=== PATIENT | female | born 1955 | race Caucasian/White ===

== ENCOUNTER 2018-05-23 15:30 | Outpatient (CLI) | payer MEDICARE | END 2018-05-23 15:31 | disposition critical access hospital (66) | LOC: EMS 15:30 | PROVIDERS: ATTEND Surgery | DX: R41.82 Altered mental status, unspecified (principal); R11.2 Nausea with vomiting, unspecified; R73.09 Other abnormal glucose | CPT/HCPCS: A0425; A0427 ==

== ENCOUNTER 2018-05-23 16:03 | Inpatient (IN) | payer MEDICARE ==
[2018-05-23] MEDS ORDERED: ELECTROLYTE-A SOLUTION 1,000 ML IV STA (16:13)
[2018-05-23] MEDS ORDERED: ELECTROLYTE-A SOLUTION 1,000 ML IV ONE (16:13)
--- NOTE | 2018-05-23 16:39 | ED Physician Documentation ---
History of Present Illness - Stated complaint Stated Complaint: DKA - Chief complaint Chief Complaint: Neuro - History obtained from History obtained from: Family, EMS - History of Present Illness Timing: Today - Additonal information Additional information: Patient found altered at home. Unknown what happened. She is a diabetic and blood sugar around 500 with EMS. Review of Systems Unable to obtain: [facility] PAST MEDICAL HISTORY - Past Medical History Past Medical History: Yes Endocrine/Autoimmune: Type 2 diabetes - Present Medications Home Medications: Ambulatory Orders Medication Instructions Recorded Confirmed Amoxicillin/Potassium Clav [Amox 1 each PO BID 05/23/18 05/23/18 Tr-K Clv 875-125 mg Tab] Atorvastatin Calcium 40 mg PO DAILY 05/23/18 05/23/18 Insulin 70/30 Human [NovoLIN] 20 unit SUBQ QPM 05/23/18 Levothyroxine [Synthroid] 125 mcg PO QDAC 05/23/18 05/23/18 Lisinopril 5 mg PO DAILY 05/23/18 05/23/18 predniSONE [Prednisone] 20 mg PO DAILY 05/23/18 05/23/18 - Allergies Allergies/Adverse Reactions: Allergies Allergy/AdvReac Type Severity Reaction Status Date / Time Unable to Assess Allergy Verified 05/23/18 17:44 - Living Situation Living Arrangement: reports: At home PD ED PE NORMAL - Vitals Vital signs reviewed: Yes - General General: Other (alert, not oriented to person, place, or time. just repeats "I don't know" over and over.) - HEENT HEENT: Atraumatic, PERRL, EOMI, Moist mucous membranes, Pharynx benign - Neck Neck: Supple, no meningeal sign - Cardiac Cardiac: RRR, Strong equal pulses - Respiratory Respiratory: No respiratory distress, Clear bilaterally - Abdomen Abdomen: Soft, Non tender, Non distended - Back Back: No spinal TTP - Derm Derm: Warm and dry - Extremities Extremities: No edema - Neuro Neuro: Other (alert) Results - Vitals Vitals: Vital Signs - 24 hr 05/23/18 05/23/18 05/23/18 16:05 16:30 18:30 Temperature 36.7 C 38.8 C H Heart Rate 99 88 111 H Respiratory 18 18 24 Rate Blood Pressure 184/89 H 169/78 H 178/105 H O2 Saturation 94 96 100 05/23/18 05/23/18 05/23/18 19:21 19:43 20:42 Temperature Heart Rate 107 H 108 H 109 H Respiratory 19 20 19 Rate Blood Pressure 170/79 H 168/82 H 156/86 H O2 Saturation 93 98 99 05/23/18 05/23/18 05/23/18 20:44 21:07 21:33 Temperature 39.2 C H Heart Rate 107 H 107 H Respiratory 18 21 Rate Blood Pressure 169/72 H 162/68 H O2 Saturation 100 99 Oxygen O2 Source Nasal cannula - EKG (time done) 2003 Rate: Rate (enter#) (111) Rhythm: Sinus tachycardia [place]: Normal Intervals: Normal [place] QRS: Normal Ischemia: Normal ST segments Other comments: Other comments (low voltage) - Labs Labs: Microbiology 05/23/18 20:47 CSF Culture - Preliminary Cerebral Spinal Fluid Laboratory Tests 05/23/18 05/23/18 05/23/18 16:11 16:40 16:40 WBC 10.2 RBC 3.98 L Hgb 12.4 Hct 35.7 L MCV 89.7 MCH 31.0 MCHC 34.6 RDW 14.2 Plt Count 284 MPV 9.7 Neut # (Auto) 8.0 H Lymph # (Auto) 1.6 [place] # (Auto) 0.4 Eos # (Auto) 0.0 Baso # (Auto) 0.1 Absolute Nucleated RBC 0.00 Nucleated RBC % 0.0 VBG pH 7.482 H VBG pCO2 38.9 L VBG pO2 34.0 VBG HCO3 29.1 H VBG Total CO2 30.0 H VBG O2 Saturation 71.0 VBG Base Excess 6.0 H Sodium Potassium Chloride Carbon Dioxide Anion Gap BUN Creatinine Estimated GFR (MDRD) Glucose POC Whole Bld Glucose 529 H* Lactic Acid Calcium Total Bilirubin AST ALT Alkaline Phosphatase Troponin I Total Protein Albumin Globulin Albumin/Globulin Ratio Lipase TSH Free T4 Urine Color Urine Clarity Urine pH Ur Specific [place] Urine Protein Urine Glucose (UA) Urine Ketones Urine Occult Blood Urine Nitrite Urine Bilirubin Urine Urobilinogen Ur Leukocyte Esterase Urine RBC Urine WBC Ur Squamous Epith Cells Urine Bacteria Ur Microscopic Review Urine Culture Comments CSF Color CSF Clarity Xanthrochromic CSF WBC CSF RBC CSF Cell Count Tube # CSF Glucose CSF Total Protein Salicylates Urine Opiates Screen Ur Oxycodone Screen Urine Methadone Screen Ur Propoxyphene Screen Acetaminophen Ur Barbiturates Screen Ur Tricyclics Screen Ur Phencyclidine Scrn Ur Amphetamine Screen U Methamphetamines Scrn U Benzodiazepines Scrn Urine Cocaine Screen U Cannabinoids Screen Ethyl Alcohol Serum Ketones 05/23/18 05/23/18 05/23/18 17:45 17:45 17:45 WBC RBC Hgb Hct MCV MCH MCHC RDW Plt Count MPV Neut # (Auto) Lymph # (Auto) [place] # (Auto) Eos # (Auto) Baso # (Auto) Absolute Nucleated RBC Nucleated RBC % VBG pH VBG pCO2 VBG pO2 VBG HCO3 VBG Total CO2 VBG O2 Saturation VBG Base Excess Sodium 133 L Potassium 4.4 Chloride 93 L Carbon Dioxide 24 Anion Gap 16.0 H BUN 23 H Creatinine 1.1 H Estimated GFR (MDRD) 50 L Glucose 456 H POC Whole Bld Glucose Lactic Acid Calcium 9.1 Total Bilirubin 0.4 AST 27 ALT 31 Alkaline Phosphatase 118 Troponin I < 0.04 Total Protein 7.7 Albumin 3.7 Globulin 4.0 Albumin/Globulin Ratio 0.9 L Lipase 25 TSH 0.23 L Free T4 Urine Color Urine Clarity Urine pH Ur Specific [place] Urine Protein Urine Glucose (UA) Urine Ketones Urine Occult Blood Urine Nitrite Urine Bilirubin Urine Urobilinogen Ur Leukocyte Esterase Urine RBC Urine WBC Ur Squamous Epith Cells Urine Bacteria Ur Microscopic Review Urine Culture Comments CSF Color CSF Clarity Xanthrochromic CSF WBC CSF RBC CSF Cell Count Tube # CSF Glucose CSF Total Protein Salicylates Urine Opiates Screen Ur Oxycodone Screen Urine Methadone Screen Ur Propoxyphene Screen Acetaminophen Ur Barbiturates Screen Ur Tricyclics Screen Ur Phencyclidine Scrn Ur Amphetamine Screen U Methamphetamines Scrn U Benzodiazepines Scrn Urine Cocaine Screen U Cannabinoids Screen Ethyl Alcohol Serum Ketones NEGATIVE 05/23/18 05/23/18 05/23/18 17:45 18:00 18:25 WBC RBC Hgb Hct MCV MCH MCHC RDW Plt Count MPV Neut # (Auto) Lymph # (Auto) [place] # (Auto) Eos # (Auto) Baso # (Auto) Absolute Nucleated RBC Nucleated RBC % VBG pH VBG pCO2 VBG pO2 VBG HCO3 VBG Total CO2 VBG O2 Saturation VBG Base Excess Sodium Potassium Chloride Carbon Dioxide Anion Gap BUN Creatinine Estimated GFR (MDRD) Glucose POC Whole Bld Glucose 430 H Lactic Acid Calcium Total Bilirubin AST ALT Alkaline Phosphatase Troponin I Total Protein Albumin Globulin Albumin/Globulin Ratio Lipase TSH Free T4 1.24 Urine Color Urine Clarity Urine pH Ur Specific [place] Urine Protein Urine Glucose (UA) Urine Ketones Urine Occult Blood Urine Nitrite Urine Bilirubin Urine Urobilinogen Ur Leukocyte Esterase Urine RBC Urine WBC Ur Squamous Epith Cells Urine Bacteria Ur Microscopic Review Urine Culture Comments CSF Color CSF Clarity Xanthrochromic CSF WBC CSF RBC CSF Cell Count Tube # CSF Glucose CSF Total Protein Salicylates < 6.0 Urine Opiates Screen Ur Oxycodone Screen Urine Methadone Screen Ur Propoxyphene Screen Acetaminophen < 10 L Ur Barbiturates Screen Ur Tricyclics Screen Ur Phencyclidine Scrn Ur Amphetamine Screen U Methamphetamines Scrn U Benzodiazepines Scrn Urine Cocaine Screen U Cannabinoids Screen Ethyl Alcohol < 5.0 Serum Ketones 05/23/18 05/23/18 05/23/18 19:25 19:53 20:47 WBC RBC Hgb Hct MCV MCH MCHC RDW Plt Count MPV Neut # (Auto) Lymph # (Auto) [place] # (Auto) Eos # (Auto) Baso # (Auto) Absolute Nucleated RBC Nucleated RBC % VBG pH VBG pCO2 VBG pO2 VBG HCO3 VBG Total CO2 VBG O2 Saturation VBG Base Excess Sodium Potassium Chloride Carbon Dioxide Anion Gap BUN Creatinine Estimated GFR (MDRD) Glucose POC Whole Bld Glucose Lactic Acid 2.3 H Calcium Total Bilirubin AST ALT Alkaline Phosphatase Troponin I Total Protein Albumin Globulin Albumin/Globulin Ratio Lipase TSH Free T4 Urine Color YELLOW Urine Clarity CLEAR Urine pH 6.0 Ur Specific [place] 1.015 Urine Protein 100 H Urine Glucose (UA) >=1000 H Urine Ketones 40 H Urine Occult Blood SMALL H Urine Nitrite NEGATIVE Urine Bilirubin NEGATIVE Urine Urobilinogen 0.2 (NORMAL) Ur Leukocyte Esterase NEGATIVE Urine RBC 0-5 Urine WBC 0-3 Ur Squamous Epith Cells NONE SEEN Urine Bacteria None Seen Ur Microscopic Review INDICATED Urine Culture Comments NOT INDICATED CSF Color COLORLESS CSF Clarity CLEAR Xanthrochromic ABSENT CSF WBC 1 CSF RBC 893 H CSF Cell Count Tube # CSF TUBE# 3 CSF Glucose 228 H CSF Total Protein 64 H Salicylates Urine Opiates Screen NEGATIVE Ur Oxycodone Screen NEGATIVE Urine Methadone Screen NEGATIVE Ur Propoxyphene Screen NEGATIVE Acetaminophen Ur Barbiturates Screen NEGATIVE Ur Tricyclics Screen NEGATIVE Ur Phencyclidine Scrn NEGATIVE Ur Amphetamine Screen NEGATIVE U Methamphetamines Scrn NEGATIVE U Benzodiazepines Scrn NEGATIVE Urine Cocaine Screen NEGATIVE U Cannabinoids Screen NEGATIVE Ethyl Alcohol Serum Ketones - Rads (name of study) cxr Radiology: Prelim report reviewed, EMP read contemporaneously, See rad report (No infiltrate identified. Elevated right hemidiaphragm with mild overlying atelectasis. Cardiomegaly. ) head CT Radiology: Prelim report reviewed, EMP read contemporaneously, See rad report (No acute intracranial abnormality) Procedures - Lumbar Puncture Position: Laying left side Location: L4-L5, Midline approach Anesthesia: Local lidocaine CSF: Bloody but clearing Other: Sterile prep and drape, Patient tolerated well, No complications PD MEDICAL DECISION MAKING - ED course Complexity details: reviewed results, re-evaluated patient, considered differential, d/w family ED course: Patient is a 63-year-old female who presents to the emergency department with acute altered mental status. No history is available. Unknown what medication she takes. Family is not present. No acute findings on head CT, laboratory testing other than elevated blood glucose. She did spike a fever while in the emergency department and lactate and blood cultures were drawn. Lactate is mildly elevated. Given IV fluids and started on empiric antibiotics after lumbar puncture. She remains altered and will admit her to medicine for further care. Discussed the case with Dr. Betts, hospitalist who accepts This document was made in part using voice recognition software. While efforts are made to proofread this document, sound alike and grammatical errors may occur. - Sepsis Event Vital Signs: Vital Signs - 24 hr 05/23/18 05/23/18 05/23/18 16:05 16:30 18:30 Temperature 36.7 C 38.8 C H Heart Rate 99 88 111 H Respiratory 18 18 24 Rate Blood Pressure 184/89 H 169/78 H 178/105 H O2 Saturation 94 96 100 05/23/18 05/23/18 05/23/18 19:21 19:43 20:42 Temperature Heart Rate 107 H 108 H 109 H Respiratory 19 20 19 Rate Blood Pressure 170/79 H 168/82 H 156/86 H O2 Saturation 93 98 99 05/23/18 05/23/18 05/23/18 20:44 21:07 21:33 Temperature 39.2 C H Heart Rate 107 H 107 H Respiratory 18 21 Rate Blood Pressure 169/72 H 162/68 H O2 Saturation 100 99 Oxygen O2 Source Nasal cannula Departure - Departure Disposition: 66 [facility] DC/Xfer Clinical Impression: Altered mental status Qualifiers: Altered mental status type: unspecified Qualified Code(s): R41.82 - Altered mental status, unspecified Fever Qualifiers: Fever type: unspecified Qualified Code(s): R50.9 - Fever, unspecified Condition: Stable Discharge Date/Time: 05/24/18 00:05
[2018-05-23 17:01] LABS: BASOPHILS # (AUTO) 0.1 10^3/uL (0.0-0.1); BASOPHILS % (AUTO) 1.4 %; EOSINOPHILS % (AUTO) 0.2 %; HGB - HEMOGLOBIN 12.4 g/dL (12.0-16.0); LYMPHOCYTES # (AUTO) 1.6 10^3/uL (1.5-3.5); LYMPHOCYTES % (AUTO) 15.8 %; MEAN CORPUSCULAR HGB CONC 34.6 g/dL (32.0-36.0); MEAN CORPUSCULAR VOLUME 89.7 fL (81.0-99.0); MEAN PLATELET VOLUME 9.7 fL (7.9-10.8); MONOCYTES # (AUTO) 0.4 10^3/uL (0.0-1.0); MONOCYTES % (AUTO) 4.2 %; NEUTROPHILS % (AUTO) 78.4 %; PLT - PLATELET COUNT 284 10^3/uL (130-450); RED BLOOD COUNT 3.98 10^6/uL (4.20-5.40); RED CELL DISTRIBUTION WIDTH 14.2 % (12.0-15.0); WHITE BLOOD COUNT 10.2 x10^3/uL (4.8-10.8)
[2018-05-23 17:37] LABS: VBG PH 7.482 (7.31-7.41)
[2018-05-23 17:38] LABS: VBG PCO2 38.9 mmHg (41-51)
[2018-05-23 18:00] LABS: KETONES, SERUM (ACETEST) NEGATIVE (NEGATIVE)
[2018-05-23 18:11] LABS: ALBUMIN 3.7 g/dL (3.2-5.5); ALBUMIN/GLOBULIN RATIO 0.9 (1.0-2.2); ALKALINE PHOSPHATASE 118 IU/L (42-121); ALT ALANINE AMINOTRANSFERASE 31 IU/L (10-60); AST ASPARTATE AMINOTRANSFERASE 27 IU/L (10-42); BILIRUBIN,TOTAL 0.4 mg/dL (0.2-1.0); BUN - BLOOD UREA NITROGEN 23 mg/dL (6-20); CALCIUM 9.1 mg/dL (8.5-10.3); CARBON DIOXIDE - CO2 24 mmol/L (21-32); CHLORIDE 93 mmol/L (101-111); CREATININE 1.1 mg/dL (0.4-1.0); GFR - MDRD 50 (>89); GLUCOSE 456 mg/dL (70-100); LIPASE 25 U/L (22-51); SODIUM 133 mmol/L (135-145); TOTAL PROTEIN 7.7 g/dL (6.7-8.2)
[2018-05-23] MEDS ORDERED: HALOPERIDOL 5 MG/ML VIAL IVP STA (18:15)
[2018-05-23] MEDS ORDERED: LORazepam 2 MG/ML VIAL IVP STA (18:18)
[2018-05-23 18:35] LABS: SALICYLATE < 6.0 mg/dL
[2018-05-23 18:41] LABS: ACETAMINOPHEN < 10 ug/mL (10-30)
--- NOTE | 2018-05-23 19:26 | CT Report ---
Reason: ALOC Procedure Date: 05/23/2018 Accession Number: [id number] / [id number] Procedure: CT - Head W/O CPT Code: FULL RESULT: EXAM: CT HEAD EXAM DATE: 05/23/2018 07:02 PM. CLINICAL HISTORY: ALOC. COMPARISON: None. TECHNIQUE: Multiaxial CT images were obtained from the foramen magnum to the vertex. Reformats: Sagittal and coronal. IV contrast: None. In accordance with CT protocol optimization, one or more of the following dose reduction techniques were utilized for this exam: automated exposure control, adjustment of mA and/or KV based on patient size, or use of iterative reconstructive technique. FINDINGS: Parenchyma: No intraparenchymal hemorrhage. No evidence of mass, midline shift, or CT findings of acute infarction. Forbes-white differentiation is distinct. Diffuse chronic microangiopathic white matter changes are evident. Senile calcifications in the bilateral basal ganglia. Extraaxial Spaces: Normal for age. No subdural or epidural collections identified. Ventricles: The ventricles and cortical sulci are enlarged, consistent with age-related tissue loss. Sinuses and orbits: Imaged paranasal sinuses, orbits, and mastoids show no significant abnormality. Bones: No evidence of fracture or calvarial defect. Other: None. IMPRESSION: Generalized age-related cortical atrophic changes without evidence of acute intracranial abnormality. RADIA
[2018-05-23] MEDS ORDERED: MIDAZOLAM 2 MG/2 ML VIAL IVP STA (20:00)
[2018-05-23 20:06] LABS: MUDS CUTOFF CONCENTRATIONS CUTOFF CONC BELOW:
[2018-05-23 20:12] LABS: BILIRUBIN,URINE NEGATIVE (NEGATIVE); CLARITY,URINE CLEAR (CLEAR); GLUCOSE, URINE (UA) >=1000 mg/dL (NEGATIVE); KETONES,URINE (UA) 40 mg/dL (NEGATIVE); LEUKOCYTE ESTERASE, URINE NEGATIVE (NEGATIVE); NITRITE,URINE NEGATIVE (NEGATIVE); OCCULT BLOOD,URINE SMALL (NEGATIVE); PROTEIN,URINE 100 mg/dL (NEGATIVE); UROBILINOGEN,URINE 0.2 (NORMAL) E.U./dL (NORMAL)
[2018-05-23] MEDS ORDERED: LIDOCAINE 2% 10 ML MDV ONE (20:17)
[2018-05-23 20:20] LABS: AMPHETAMINE SCREEN,URINE NEGATIVE (NEGATIVE); BENZODIAZEPINES SCREEN, URINE NEGATIVE (NEGATIVE); COCAINE SCREEN URINE NEGATIVE (NEGATIVE); METHADONE SCREEN, URINE NEGATIVE (NEGATIVE); METHAMPHETAMINES SCREEN, URINE NEGATIVE (NEGATIVE); OPIATE SCREEN, URINE NEGATIVE (NEGATIVE); OXYCODONE SCREEN, URINE NEGATIVE (NEGATIVE); PROPOXYPHENE SCREEN, URINE NEGATIVE (NEGATIVE); TRICYCLIC ANTIDEPRESSANT,URINE NEGATIVE (NEGATIVE)
[2018-05-23 20:24] LABS: BACTERIA,URINE None Seen /HPF (None Seen); RBC,URINE 0-5 /HPF (0-5); SQUAMOUS EPITHELIAL CELL,UR NONE SEEN (<= Few)
[2018-05-23] MEDS ORDERED: metroNIDAZOLE 500 MG/100 ML 500 MG/100 ML BAG IV ONE (20:43)
[2018-05-23] MEDS ORDERED: CEFEPIME 1 GM in SODIUM CHLORIDE 0.9% MINIBAG 100 ML IV STA (20:43)
[2018-05-23] MEDS ORDERED: VANCOMYCIN INJ 1 GM in SODIUM CHLORIDE 0.9% 500 ML IV STA (20:43)
[2018-05-23] MEDS ORDERED: ACETAMINOPHEN 1,000 MG/100 ML 100 ML IV STA (20:48)
[2018-05-23 21:07] LABS: CSF - GLUCOSE 228 mg/dL (45-70)
--- NOTE | 2018-05-23 21:10 | XRAY Report ---
Reason: fever, cough Procedure Date: 05/23/2018 Accession Number: [id number] / [id number] Procedure: XR - Chest 1 View X-Ray CPT Code: 54629 FULL RESULT: EXAM: CHEST RADIOGRAPHY EXAM DATE: 05/23/2018 08:53 PM. CLINICAL HISTORY: Fever. Cough. COMPARISON: None. TECHNIQUE: 1 view. FINDINGS: Lungs/Pleura: Elevated right hemidiaphragm with mild overlying atelectasis, otherwise no focal opacities evident. No pleural effusion. No pneumothorax. Mediastinum: Large heart. Other: No bony abnormality noted. IMPRESSION: 1. No infiltrate identified. 2. Elevated right hemidiaphragm with mild overlying atelectasis. 3. Cardiomegaly. RADIA
[2018-05-23] MEDS ORDERED: PROCHLORPERAZINE 10 MG/2 ML VIAL IVP PRN (21:50)
[2018-05-23] MEDS ORDERED: ALBUTEROL NEB 2.5 MG/3 ML INH PRN (21:50)
[2018-05-23] MEDS ORDERED: ONDANSETRON 4 MG/2 ML VIAL IVP PRN (21:50)
[2018-05-23] MEDS ORDERED: INSULIN REGULAR HUMAN 100 UNIT/1 ML 10 ML MDV SUBQ ONE (21:50)
[2018-05-23] MEDS ORDERED: VANCOMYCIN PER PHARMACY 0.1 GM in SODIUM CHLORIDE 0.9% 250 ML IV PRN (21:50)
[2018-05-23] MEDS ORDERED: MORPHINE 2 MG/ML CARPUJECT IVP PRN (21:50)
[2018-05-23] MEDS ORDERED: PROMETHAZINE 25 MG/1 ML VIAL IM PRN (21:50)
[2018-05-23] MEDS ORDERED: SODIUM CHLORIDE 0.9% IV STA (21:50)
[2018-05-23 21:59] LABS: CLARITY,CSF CLEAR (CLEAR); COLOR,CSF COLORLESS (COLORLESS); CSF TUBE # CSF TUBE# 3; CSF XANTHOCHROMIA ABSENT (ABSENT); WHITE BLOOD CELL,CSF 1 /mm^3 (0-5)
[2018-05-23] MEDS ORDERED: INSULIN REGULAR HUMAN 100 UNIT in SODIUM CHLORIDE 0.9% 100ML 99 ML IV SCH (22:00)
[2018-05-23] MEDS ORDERED: CEFEPIME 2 GM in SODIUM CHLORIDE 0.9% MINIBAG 100 ML IV SCH (22:00)
[2018-05-23] MEDS ORDERED: SODIUM CHLORIDE 0.9% 1,000 ML IV SCH (22:00)
[2018-05-23 22:22] LABS: RED BLOOD CELL,CSF 893 /mm^3 (0-1)
--- NOTE | 2018-05-23 23:16 | HISTORY & PHYSICAL EXAMINATION ---
Chief Complaint - Chief Complaint Chief Complaint: Altered mental status History of Present Illness - Admitted From Admitted From:: Emergency Department - History Obtained From Records Reviewed: Yes History obtained from: Patients Aunt Milagros Exam Limitations: Patient unable to provide any history due to encephalopathy - History of Present Illness HPI Comment/Other: Patient is a 63-year-old female with a past medical history significant for morbid obesity, type 2 diabetes mellitus, hypertension, asthma, hyperlipidemia a nd hypothyroidism who presents to the emergency department with altered mental status. The patient is unable to provide any medical history as she cannot answer questions and is not following commands on presentation. The history is provided by the patient's aunt Milagros Mccarty. Milagros states that her niece lives in [place] and had come over to [facility] yesterday to help out Milagros as she was going for surgery on 05/25/2018. Milagros states that prior to coming over to [facility] the patient had been suffering with cough and upper respiratory symptoms. She had been placed on Augmentin and prednisone and was taking these medications when she came to take care of her aunt. She states however yesterday the patient was in her normal state of health and had no complaints. She appeared well and was not having any major coughing spells or shortness of breath. She was not complaining of any fevers or chills and acted completely normally. Milagros states that this afternoon after the patient had had lunch she began acting a little off. Milagros states that the patient had cla m chowder for lunch but was not complaining of any abdominal pain nor was she vomiting or having any diarrhea. She states that it just appeared that her niece was not her normal self. Milagros states that she was not making a whole lot of sense when she was talking and appeared to be very drowsy. She states that she asked the patient if her blood sugar was okay to which the patient replied it is fine. Milagros states that the patient just told her that she needed to lie down. Milagros states that the patient lie down for a couple of hours and then got up. Milagros states that once the patient got up she was almost incoherent. She states that she was jabbering and not making any sense. She states that she continue to repeat the same thing over and over and was not answering violence questions appropriately. While it then decided it was time to call EMS. She states that after she called EMS that the patient did have an episode of vomiting in the kitchen and continued to have altered mental status. The patient was unable to provide any further review of systems due to her altered mental status. The patient was unable to answer any questions or follow commands on presentation to the emergency department as well as presentation to the medical lazar. On presentation to the emergency department initially the patient was afebrile, mildly tachycardic and very hypertensive with no respiratory distress. The patient's initial lab work revealed a WBC of 10.2, a pH of 7.48, mild hypon atremia of 133 with a blood glucose of 456 and a mildly elevated lactic acid of 2.3. The patient did have a anion gap of 16 and appeared slightly dry on examination. The patient's creatinine was 1.1 we did not have any previous baseline. The patient's troponin was less than 0.04. The patient's UA was positive for glucose, protein and ketones but otherwise showed no sign of infection. The patient continued to have altered mentation in the emergency department and repeat vital signs showed a temperature of 38.8 which peaked in the ER to 39.2. The patient became tachycardic with a heart rate of 111, she continued to be hypertensive and became tachypneic with a respiratory rate of 24. The patient appear to have obvious sepsis and underwent further testing for possible source. The patient did have a CT of her head due to her altered mentation which was negative. The patient underwent a chest x-ray in the emergency department which showed no infiltrate and some cardiomegaly. The suyapa patel also had an EKG which showed sinus tachycardia without any ST elevations or ischemic changes. The patient underwent a lumbar puncture which showed just 1 WBC and numerous RBCs. It was not suspicious for meningitis. The patient's U tox was negative. The patient's TSH was mildly decreased but her free T4 was normal. The patient did have blood cultures drawn in the emergency department. Given her persistent fever and no obvious source the patient was admitted to the intensive care unit for severe sepsis of unknown etiology. Prior to being admitted the patient was given IV antibiotics with vancomycin, cefepime and Flagyl. The patient had no response to the medical treatment in the emergency department and continued to have altered mental status. 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 Social History Notes: The patient lives in [place] and is on disability. She was visiting her aunt on [facility] as she was supposed to help her while she is recovering from surgery. The patient is and has been for 1-1/2 years. She lives with her . She has 1 grown daughter. She is not a smoker, she is not a drinker and does not use any illicit drugs all according to her aunt. - POLST Patient has POLST: No POLST Status: Full Code Meds/Allgy - Home Medications Home Medications: Ambulatory Orders Medication Instructions Recorded Confirmed Amoxicillin/Potassium Clav [Amox 1 each PO BID 05/23/18 05/23/18 Tr-K Clv 875-125 mg Tab] Atorvastatin Calcium 40 mg PO DAILY 05/23/18 05/23/18 Insulin 70/30 Human [NovoLIN] 20 unit SUBQ QPM 05/23/18 Levothyroxine [Synthroid] 125 mcg PO QDAC 05/23/18 05/23/18 Lisinopril 5 mg PO DAILY 05/23/18 05/23/18 predniSONE [Prednisone] 20 mg PO DAILY 05/23/18 05/23/18 - Allergies Allergies/Adverse Reactions: Allergies Allergy/AdvReac Type Severity Reaction Status Date / Time Unable to Assess Allergy Verified 05/23/18 17:44 Review of Systems - Other Findings Other Findings: Patient unable to provide any review of systems secondary to what appears to be metabolic encephalopathy with altered mental status. Exam - Vital Signs Reviewed Vital Signs: Yes Vital Signs: Vital Signs x48h Temp Pulse Resp BP Pulse Ox 05/23/18 21:33 107 H 21 162/68 H 99 05/23/18 21:07 107 H 18 169/72 H 100 05/23/18 20:44 39.2 C H 05/23/18 20:42 109 H 19 156/86 H 99 05/23/18 19:43 108 H 20 168/82 H 98 05/23/18 19:21 107 H 19 170/79 H 93 05/23/18 18:30 38.8 C H 111 H 24 178/105 H 100 05/23/18 16:30 88 18 169/78 H 96 05/23/18 16:05 36.7 C 99 18 184/89 H 94 - Physical Exam General Appearance: positive: Moderate distress, Lethargic, Other (Agitated, confused, not opening her eyes, not following commands, not answering questions. She does grimace and says ouch when her abdomen is touched.) Eyes Bilateral: positive: Normal inspection, PERRL, EOMI, No lid inflammation, Conjunctivae nml, No scleral icterus ENT: positive: ENT inspection nml, Pharynx nml, Dry mucous membranes. negative: Purulent nasal drainage, Pharyngeal erythema, Oral lesions Neck: positive: Nml inspection, Thyroid nml, No JVD, Trachea midline. negative: Thyromegaly, Lymphadenopathy (R), Lymphadenopathy (L), Stiff neck, Carotid bruit, Tracheal deviation Respiratory: positive: Chest non-tender, No respiratory distress, Wheezes (Scattered) Cardiovascular: positive: No murmur, No gallop, Tachycardia Peripheral Pulses: positive: 2+ Abdomen: positive: No organomegaly, Nml bowel sounds, No distention, Tenderness (Diffusely tender, grimacing, no rebound, soft, no peritoneal signs.) Back: positive: Nml inspection. negative: CVA tenderness (R), CVA tenderness (L) Skin: positive: Color nml, No rash, Warm, Dry, Other (Patient does have an obvious lozada line and has burned skin on. This all appears to be from sunburn.). negative: Cyanosis, Diaphoresis, Pallor, Skin rash Extremities: positive: Non-tender, Full ROM, Nml appearance, No pedal edema Neurologic/Psychiatric: positive: Motor nml, Sensation nml, Disoriented to person, Disoriented to place, Disoriented to time, Other (Patient has no focal deficits but is not following commands, not answering questions, she does respond with words from time to time but is not speaking in any coherent sentences.) Conclusion/Plan - Problem List (1) Severe sepsis Conclusion/Plan: The patient appears to have severe sepsis on presentation to the emergency department. She presented with altered mentation and this appears to be secondary to endorgan damage from sepsis. The patient had a fever with a temperature of 39.2, tachycardia with heart rate of 111 and was tachypneic with respiratory rate of 24. The patient had a normal WBC of 10.2 but did have elevated lactic acid of 2.3. She also had acute kidney injury with a creatinine of 1.2. Source of the patient's sepsis is unknown at this time. Patient's infectious workup so far has included a chest x-ray, lumbar puncture, CT head, urine analysis which have all been negative for source of infection. The patient did have blood cultures drawn in the emergency department which are still pending. I suspect that the patient likely has bacteremia given her presentation. It is also possible that the patient's source of infection is intra-abdominal as she does have some abdominal tenderness. Plan: Broad-spectrum IV antibiotics with vancomycin, cefepime and Flagyl IV fluids Monitor lactic acid Blood cultures pending CT abdomen/pelvis Consider MRI if patient is not improving Follow-up cultures from CSF (2) Encephalopathy Conclusion/Plan: The patient presented to the emergency department with altered mental status which appears to be secondary to metabolic encephalopathy from ongoing sepsis. The patient continues to have severely altered mental status as she is not following commands and essentially is nonverbal. She also has lethargy and is not opening her eyes. The patient will be treated for her ongoing severe sepsis and we hope that the patient's mentation will improve. The patient could be having seizures especially if the patient has a viral encephalitis although the LP does not point in that direction. Plan: Consider MRI of the brain if patient continues to have altered mental status despite treatment of sepsis Await cultures of the lumbar puncture Continue treatment for sepsis. (3) DKA (diabetic ketoacidoses) Conclusion/Plan: The patient has a history of type 2 diabetes. On presentation to the emergency department the patient does have diabetic ketoacidosis with an anion gap of 15, blood glucose of 456, positive urine ketones and altered mental status. Although this is a very mild DKA given that the patient has ongoing sepsis which is likely contributing to her hyperglycemia we will place the patient on insuli n drip in the intensive care unit. Plan: IV fluids Insulin drip at 9 U/h Continue to monitor blood glucose q. one hour until blood glucose is below 250 then start patient on D5 Consider switching patient to n.p.o. sliding scale insulin once blood glucose is better controlled Hemoglobin A1c Qualifiers: Diabetes mellitus type: type 2 (4) Hypertension Conclusion/Plan: Patient has history of hypertension and is very hypertensive on presentation. Patient may be hypertensive because of agitation or possibly ongoing stroke. The patient also has sepsis and we would rather see the patient hypertensive than getting hypotensive. At this time we will continue giving the patient IV fluids and hold off on her antihypertensive medications unless blood pressure becomes excessively elevated. Qualifiers: Hypertension type: essential hypertension Qualified Code(s): I10 - Essen tial (primary) hypertension (5) DARSHAN (acute kidney injury) Conclusion/Plan: The patient does appear to have acute kidney injury on presentation as her creatinine was elevated at 1.2. We do not have a baseline creatinine on the patient but given her appearance and ongoing severe sepsis it is likely that this is elevated from her baseline creatinine. The patient will be given IV fluids and we will continue to monitor her creatinine. We will avoid any ne phrotoxic agents. Her creatinine should improve with treatment of sepsis and fluid resuscitation. (6) Hyponatremia Conclusion/Plan: The patient has hyponatremia on presentation with a sodium of 132. This appears to be hypovolemic hyponatremia as the patient does appear to be quite dehydrated. The patient will be given IV fluids and we will continue to monitor her sodium throughout her stay in the hospital. (8) Asthma Conclusion/Plan: The patient has a history of asthma and was recently diagnosed with pneumonia and placed on Augmentin and prednisone. The patient does have some mild wheezing on examination but does not appear to be in a full-blown asthma exacerbation. For now the patient will be placed on duo nebs as needed along with budesonide and formoterol twice daily. We will continue to monitor the patient's respiratory status. Patient's chest x-ray did not show any infiltrates. Qualifiers: Asthma severity: mild Asthma persistence: intermittent - Lab Results Lab results reviewed: Yes Fish Bones: 05/23/18 16:40 05/23/18 17:45 Other Lab Results: Laboratory Results WBC 10.2 x10^3/uL (4.8-10.8) 05/23/18 16:40 RBC 3.98 10^6/uL (4.20-5.40) L 05/23/18 16:40 Hgb 12.4 g/dL (12.0-16.0) 05/23/18 16:40 Hct 35.7 % (37.0-47.0) L 05/23/18 16:40 MCV 89.7 fL (81.0-99.0) 05/23/18 16:40 MCH 31.0 pg (27.0-31.0) 05/23/18 16:40 MCHC 34.6 g/dL (32.0-36.0) 05/23/18 16:40 RDW 14.2 % (12.0-15.0) 05/23/18 16:40 Plt Count 284 10^3/uL (130-450) 05/23/18 16:40 MPV 9.7 fL (7.9-10.8) 05/23/18 16:40 Neut # (Auto) 8.0 10^3/uL (1.5-6.6) H 05/23/18 16:40 Lymph # (Auto) 1.6 10^3/uL (1.5-3.5) 05/23/18 16:40 [place] # (Auto) 0.4 10^3/uL (0.0-1.0) 05/23/18 16:40 Eos # (Auto) 0.0 10^3/uL (0.0-0.7) 05/23/18 16:40 Baso # (Auto) 0.1 10^3/uL (0.0-0.1) 05/23/18 16:40 Absolute Nucleated RBC 0.00 x10^3/uL 05/23/18 16:40 Nucleated RBC % 0.0 /100WBC 05/23/18 16:40 VBG pH 7.482 (7.31-7.41) H 05/23/18 16:40 VBG pCO2 38.9 mmHg (41-51) L 05/23/18 16:40 VBG pO2 34.0 mmHg (25-47) 05/23/18 16:40 VBG HCO3 29.1 mmol/L (23-28) H 05/23/18 16:40 VBG Total CO2 30.0 mmol/L (24-29) H 05/23/18 16:40 VBG O2 Saturation 71.0 % (60-80) 05/23/18 16:40 VBG Base Excess 6.0 mmol/L (-2 - +2) H 05/23/18 16:40 Sodium 133 mmol/L (135-145) L 05/23/18 17:45 Potassium 4.4 mmol/L (3.5-5.0) 05/23/18 17:45 Chloride 93 mmol/L (101-111) L 05/23/18 17:45 Carbon Dioxide 24 mmol/L (21-32) 05/23/18 17:45 Anion Gap 16.0 (6-13) H 05/23/18 17:45 BUN 23 mg/dL (6-20) H 05/23/18 17:45 Creatinine 1.1 mg/dL (0.4-1.0) H 05/23/18 17:45 Estimated GFR (MDRD) 50 (>89) L 05/23/18 17:45 Glucose 456 mg/dL (70-100) H 05/23/18 17:45 POC Whole Bld Glucose 405 mg/dL (70 - 100) H 05/24/18 00:43 Lactic Acid 2.3 mmol/L (0.5-2.2) H 05/23/18 19:25 Calcium 9.1 mg/dL (8.5-10.3) 05/23/18 17:45 Total Bilirubin 0.4 mg/dL (0.2-1.0) 05/23/18 17:45 AST 27 IU/L (10-42) 05/23/18 17:45 ALT 31 IU/L (10-60) 05/23/18 17:45 Alkaline Phosphatase 118 IU/L (42-121) 05/23/18 17:45 Troponin I < 0.04 ng/mL (<0.49) 05/23/18 17:45 Total Protein 7.7 g/dL (6.7-8.2) 05/23/18 17:45 Albumin 3.7 g/dL (3.2-5.5) 05/23/18 17:45 Globulin 4.0 g/dL (2.1-4.2) 05/23/18 17:45 Albumin/Globulin Ratio 0.9 (1.0-2.2) L 05/23/18 17:45 Lipase 25 U/L (22-51) 05/23/18 17:45 TSH 0.23 uIU/mL (0.34-5.60) L 05/23/18 17:45 Free T4 1.24 ng/dL (0.58-1.64) 05/23/18 18:00 Urine Color YELLOW 05/23/18 19:53 Urine Clarity CLEAR (CLEAR) 05/23/18 19:53 Urine pH 6.0 PH (5.0-7.5) 05/23/18 19:53 Ur Specific [place] 1.015 (1.002-1.030) 05/23/18 19:53 Urine Protein 100 mg/dL (NEGATIVE) H 05/23/18 19:53 Urine Glucose (UA) >=1000 mg/dL (NEGATIVE) H 05/23/18 19:53 Urine Ketones 40 mg/dL (NEGATIVE) H 05/23/18 19:53 Urine Occult Blood SMALL (NEGATIVE) H 05/23/18 19:53 Urine Nitrite NEGATIVE (NEGATIVE) 05/23/18 19:53 Urine Bilirubin NEGATIVE (NEGATIVE) 05/23/18 19:53 Urine Urobilinogen 0.2 (NORMAL) E.U./dL (NORMAL) 05/23/18 19:53 Ur Leukocyte Esterase NEGATIVE (NEGATIVE) 05/23/18 19:53 Urine RBC 0-5 /HPF (0-5) 05/23/18 19:53 Urine WBC 0-3 /HPF (0-5) 05/23/18 19:53 Ur Squamous Epith Cells NONE SEEN (<= Few) 05/23/18 19:53 Urine Bacteria None Seen /HPF (None Seen) 05/23/18 19:53 Ur Microscopic Review INDICATED 05/23/18 19:53 Urine Culture Comments NOT INDICATED 05/23/18 19:53 CSF Color COLORLESS (COLORLESS) 05/23/18 20:47 CSF Clarity CLEAR (CLEAR) 05/23/18 20:47 Xanthrochromic ABSENT (ABSENT) 05/23/18 20:47 CSF WBC 1 /mm^3 (0-5) 05/23/18 20:47 CSF RBC 893 /mm^3 (0-1) H 05/23/18 20:47 CSF Cell Count Tube # CSF TUBE# 3 05/23/18 20:47 CSF Glucose 228 mg/dL (45-70) H 05/23/18 20:47 CSF Total Protein 64 mg/dL (15-60) H 05/23/18 20:47 Salicylates < 6.0 mg/dL 05/23/18 17:45 Urine Opiates Screen NEGATIVE (NEGATIVE) 05/23/18 19:53 Ur Oxycodone Screen NEGATIVE (NEGATIVE) 05/23/18 19:53 Urine Methadone Screen NEGATIVE (NEGATIVE) 05/23/18 19:53 Ur Propoxyphene Screen NEGATIVE (NEGATIVE) 05/23/18 19:53 Acetaminophen < 10 ug/mL (10-30) L 05/23/18 17:45 Ur Barbiturates Screen NEGATIVE (NEGATIVE) 05/23/18 19:53 Ur Tricyclics Screen NEGATIVE (NEGATIVE) 05/23/18 19:53 Ur Phencyclidine Scrn NEGATIVE (NEGATIVE) 05/23/18 19:53 Ur Amphetamine Screen NEGATIVE (NEGATIVE) 05/23/18 19:53 U Methamphetamines Scrn NEGATIVE (NEGATIVE) 05/23/18 19:53 U Benzodiazepines Scrn NEGATIVE (NEGATIVE) 05/23/18 19:53 Urine Cocaine Screen NEGATIVE (NEGATIVE) 05/23/18 19:53 U Cannabinoids Screen NEGATIVE (NEGATIVE) 05/23/18 19:53 Ethyl Alcohol < 5.0 mg/dL 05/23/18 17:45 Serum Ketones NEGATIVE (NEGATIVE) 05/23/18 17:45 - Diagnostic Imaging Results Diagnostic Imaging Results: positive: Final report reviewed Diagnostic Imaging Results Comments: CT head Impression: Generalized age-related cortical atrophic changes without evidence of acute intracranial abnormality. Chest x-ray Impression: 1. No infiltrate identified. 2. Elevated right hemidiaphragm with mild overlying atelectasis. 3. Cardiomegaly. - EKG Results EKG Interpreted Independently: Yes EKG Findings: Sinus tachycardia without any ischemic changes Core Measures - Anticipated LOS I expect patient to be DC'd or transferred within 96 hours.: Yes - DVT/VTE - Prophylaxis VTE/DVT Prophylaxis med ordered at admit?: Yes
[2018-05-24 00:56] LABS: VBG PCO2 42.8 mmHg (41-51); VBG PH 7.355 (7.31-7.41)
[2018-05-24 01:10] LABS: CALCIUM 8.1 mg/dL (8.5-10.3); CREATININE 1.2 mg/dL (0.4-1.0); MAGNESIUM 1.7 mg/dL (1.7-2.8)
[2018-05-24] MEDS: SODIUM CHLORIDE FLUSH 0.9% 10 ML SYRINGE IVP SCH ×3 (01:43→17:35)
[2018-05-24] MEDS: metroNIDAZOLE 500 MG/100 ML 500 MG/100 ML BAG IV SCH ×4 (01:46→23:13)
[2018-05-24 02:06] LABS: BUN - BLOOD UREA NITROGEN 20 mg/dL (6-20); CALCIUM 7.4 mg/dL (8.5-10.3); CARBON DIOXIDE - CO2 21 mmol/L (21-32); CHLORIDE 103 mmol/L (101-111); CREATININE 1.1 mg/dL (0.4-1.0); GFR - MDRD 50 (>89); GLUCOSE 318 mg/dL (70-100); KETONES, SERUM (ACETEST) SMALL (NEGATIVE); SODIUM 135 mmol/L (135-145)
[2018-05-24] MEDS: DEXTROSE 5%-0.9% NACL 1,000 ML IV SCH ×2 (04:06→19:42)
[2018-05-24 04:19] LABS: BASOPHILS % (AUTO) 0.3 %; HGB - HEMOGLOBIN 9.2 g/dL (12.0-16.0); LYMPHOCYTES # (AUTO) 1.8 10^3/uL (1.5-3.5); LYMPHOCYTES % (AUTO) 14.8 %; MEAN CORPUSCULAR HGB CONC 33.9 g/dL (32.0-36.0); MEAN CORPUSCULAR VOLUME 88.5 fL (81.0-99.0); MEAN PLATELET VOLUME 8.7 fL (7.9-10.8); MONOCYTES # (AUTO) 1.4 10^3/uL (0.0-1.0); MONOCYTES % (AUTO) 11.4 %; NEUTROPHILS # (AUTO) 8.9 10^3/uL (1.5-6.6); NEUTROPHILS % (AUTO) 73.5 %; PLT - PLATELET COUNT 209 10^3/uL (130-450); RED BLOOD COUNT 3.07 10^6/uL (4.20-5.40); RED CELL DISTRIBUTION WIDTH 13.8 % (12.0-15.0); WHITE BLOOD COUNT 12.1 x10^3/uL (4.8-10.8)
[2018-05-24 04:20] LABS: PT - PROTHROMBIN TIME 11.8 secs (9.9-12.6)
[2018-05-24] MEDS ORDERED: IOPAMIDOL-300 100 ML VIAL ONE (04:26)
[2018-05-24] MEDS ORDERED: IOPAMIDOL-300 100 ML VIAL IVP ONE (04:54)
[2018-05-24 04:56] LABS: ALBUMIN 2.8 g/dL (3.2-5.5); ALBUMIN/GLOBULIN RATIO 0.9 (1.0-2.2); BILIRUBIN,TOTAL 0.5 mg/dL (0.2-1.0); CALCIUM 6.9 mg/dL (8.5-10.3); MAGNESIUM 1.6 mg/dL (1.7-2.8); PHOSPHORUS 3.2 mg/dL (2.5-4.6); TOTAL PROTEIN 5.8 g/dL (6.7-8.2)
--- NOTE | 2018-05-24 05:21 | CT Report ---
Reason: Sepsis unknown source, abd tenderness, AMS, Fever Procedure Date: 05/24/2018 Accession Number: [id number] / [id number] Procedure: CT - Abdomen/Pelvis W/ CPT Code: FULL RESULT: EXAM: CT ABDOMEN AND PELVIS EXAM DATE: 05/24/2018 05:10 AM. CLINICAL HISTORY: Sepsis unknown source, abd tenderness, AMS, Fever. COMPARISONS: None. TECHNIQUE: Routine helical CT imaging was performed through the abdomen and pelvis. IV contrast: ISOVUE 300 100mL. Enteric contrast: No. Reconstructions: Coronal and sagittal. In accordance with CT protocol optimization, one or more of the following dose reduction techniques were utilized for this exam: automated exposure control, adjustment of mA and/or KV based on patient size, or use of iterative reconstructive technique. FINDINGS: Lung Bases: Bibasilar atelectasis. No effusion or pneumothorax. Liver: Normal. No masses. Gallbladder/Bile Ducts: Unremarkable. Spleen: Normal. Pancreas: Normal. Adrenal Glands: Normal. Kidneys: Left greater than right perinephric stranding, with mildly heterogeneous enhancement of the left renal cortex, suggestive of pyelonephritis. No hydronephrosis on either side. Peritoneal Cavity/Bowel: Normal. No free fluid, free air or adenopathy. No masses or acute inflammatory process. The appendix is well visualized and normal. Pelvic Organs: Alegria catheter in the urinary bladder. No pelvic adenopathy or free fluid. Vasculature: No aneurysms or other significant abnormality. Bones: No significant abnormality. Other: None. IMPRESSION: Left worse than right perinephric stranding, with mild heterogeneity of enhancement of the left renal cortex, suggestive of pyelonephritis. RADIA
[2018-05-24 05:28] LABS: HB2 TOTAL 9.7 g/dL; HEMOGLOBIN A1C 0.9 g/dL; HEMOGLOBIN A1C % 10.6 % (4.6-6.2)
[2018-05-24 06:29] LABS: VBG PH 7.389 (7.31-7.41)
[2018-05-24] MEDS: SODIUM CHLORIDE FLUSH 0.9% 10 ML SYRINGE IVP PRN (06:46)
[2018-05-24] MEDS: PANTOPRAZOLE 40 MG VIAL IVP SCH (06:46)
[2018-05-24] MEDS: INSULIN REGULAR HUMAN 100 UNIT/1 ML 10 ML MDV SUBQ SCH ×2 (06:46→12:17)
[2018-05-24] MEDS ORDERED: CALCIUM GLUCONATE 2,000 MG in SODIUM CHLORIDE 0.9% 100ML 100 ML IV ONE ×2 (07:00→08:00)
[2018-05-24] MEDS ORDERED: MAGNESIUM SULFATE 2 GRAM 2 GM/50 ML BAG IV ONE (07:00)
[2018-05-24] MEDS ORDERED: VANCOMYCIN 1.5 GM/NS 500 ML 1.5 GM/500 ML BAG IV SCH (09:00)
[2018-05-24] MEDS: CEFEPIME 2 GM in SODIUM CHLORIDE 0.9% MINIBAG 100 ML IV SCH ×2 (09:06→16:55)
[2018-05-24] MEDS: VANCOMYCIN INJ 1 GM in SODIUM CHLORIDE 0.9% 250 ML IV SCH ×2 (10:08→21:11)
[2018-05-24] MEDS: ENOXAPARIN 40 MG/0.4 ML SYRINGE SUBQ SCH (10:09)
--- NOTE | 2018-05-24 16:48 | PROVIDER PROGRESS NOTE ---
Assessment/Plan - Problem List (1) Severe sepsis Assessment/Plan: Lactic acid level has resolved and WBC slightly improved. Continue broad spectrum iv antibiotics, unless positive cultures allow for a specific antibiotic. Continue iv fluids. Await cultures. Monitor CBC daily. (2) Pyelonephritis, acute Assessment/Plan: CT imaging was helpful in identifying the source of infection. Continue iv antibiotics. Await urine and blood culture results. (3) DKA (diabetic ketoacidoses) Qualifiers: Diabetes mellitus type: type 2 Assessment/Plan: Advance diet. Change Insulin orders to all [place] Insulin, since we learned today she has allergy to pork and beef Insulin, which gives her a rash. Continue DKA protocol in ICU, follow serum ketones til gone. (4) Metabolic encephalopathy Assessment/Plan: Her confusion has cleared, the last thing she remembers in being in an ambulance. She is asking to be discharged to be home by [place] to take care of her aunt who is about to have surgery in 2 or 3 days. I explained to her how ill she is, being in the ICU and still in DKA and possibly won't be discharged in 2-3 days. (5) Asthma Assessment/Plan: Continue orders for nebs prn. (6) Anemia Assessment/Plan: Will check B12, Folate and Iron Panel and replace if needed. Follow CBC daily for possible need for transfusion. - Current Meds Current Meds: Current Medications Generic Name Dose Route Start Last Admin Trade Name Freq PRN Reason Stop Dose Admin Enoxaparin Sodium 40 mg 05/24/18 09:00 05/24/18 10:09 Lovenox SUBQ 40 mg DAILY REYNA Administration Metronidazole 500 mg in 100 mls @ 100 mls/hr 05/23/18 23:00 05/24/18 15:30 Flagyl 500 Mg/100 Ml IV 100 mls/hr Q8H REYNA Administration Cefepime HCl 2 gm/ Sodium 100 mls @ 200 mls/hr 05/24/18 08:00 05/24/18 09:36 Chloride IV Infused Q8H REYNA Infusion Dextrose/Sodium Chloride 1,000 mls @ 75 mls/hr 05/24/18 04:00 05/24/18 12:00 D5ns IV 05/25/18 19:59 75 mls/hr .[id number] REYNA Infusion Vancomycin HCl 1 gm/ Sodium 250 mls @ 167 mls/hr 05/24/18 09:00 05/24/18 11:38 Chloride IV Infused Q12H REYNA Infusion Insulin Human Regular 1 - 9 unit 05/24/18 06:00 05/24/18 12:17 Novolin R SUBQ 3 unit Q6HR REYNA Administration Protocol Pantoprazole Sodium 40 mg 05/24/18 07:00 05/24/18 06:46 Protonix IVP 40 mg QDAC REYNA Administration Sodium Chloride 10 ml 05/24/18 01:00 05/24/18 09:12 Normal Saline Flush 0.9% IVP Not Given 0100,0900,1700 REYNA Sodium Chloride 10 ml 05/23/18 21:50 05/24/18 06:46 Normal Saline Flush 0.9% IVP 10 ml PRN PRN Administration NEEDED PER PROVIDER ORDERS - Lab Result Fish Bone Diagrams: 05/25/18 05:05 05/25/18 05:05 - Additional Planning My Orders: My Active Orders 05/24/18 11:23 Oxygen Therapy [RC] .PRN 05/24/18 16:40 Nebulizer [Nebulizer/MDI Tx.] [RC] .qid 05/24/18 16:44 Blood Glucose Checks - Eating [RC] 0800,1200,1700,2100 05/24/18 17:00 Insulin Aspart [NovoLOG] 1 - 5 unit SUBQ 0800,1200,1700,2100 05/24/18 Lunch Clear Liquid Diet [DIET] 05/25/18 05:00 A1C [CHEM] Routine KETONES, SERUM (ACETEST) [CHEM] Routine Subjective - Subjective Patient Reports: Feeling Better Nursing Reports: Other (More awake, conversing, hungry) Objective Vital Signs: Vital Signs - 24 hr 05/23/18 05/23/18 05/23/18 18:30 19:21 19:43 Temperature 38.8 C H Heart Rate 111 H 107 H 108 H Heart Rate [ Monitoring electrodes] Respiratory 24 19 20 Rate Blood Pressure 178/105 H 170/79 H 168/82 H Blood Pressure [Left Radial artery] O2 Saturation 100 93 98 05/23/18 05/23/18 05/23/18 20:42 20:44 21:07 Temperature 39.2 C H Heart Rate 109 H 107 H Heart Rate [ Monitoring electrodes] Respiratory 19 18 Rate Blood Pressure 156/86 H 169/72 H Blood Pressure [Left Radial artery] O2 Saturation 99 100 05/23/18 05/23/18 05/24/18 21:33 23:34 00:00 Temperature 38.4 C H 38.6 C H Heart Rate 107 H 106 H Heart Rate [ 109 H Monitoring electrodes] Respiratory 21 12 24 Rate Blood Pressure 162/68 H 161/76 H Blood Pressure 156/63 H [Left Radial artery] O2 Saturation 99 100 100 05/24/18 05/24/18 05/24/18 00:30 01:00 01:30 Temperature Heart Rate Heart Rate [ 103 H 95 93 Monitoring electrodes] Respiratory 14 15 16 Rate Blood Pressure Blood Pressure 150/68 H 117/49 L 116/52 L [Left Radial artery] O2 Saturation 100 100 100 05/24/18 05/24/18 05/24/18 02:00 03:00 03:30 Temperature Heart Rate Heart Rate [ 90 81 76 Monitoring electrodes] Respiratory 16 15 15 Rate Blood Pressure Blood Pressure 116/52 L 117/52 L 112/54 L [Left Radial artery] O2 Saturation 100 100 100 05/24/18 05/24/18 05/24/18 04:00 05:00 06:00 Temperature 36.9 C Heart Rate Heart Rate [ 92 87 Monitoring electrodes] Respiratory 13 15 74 H Rate Blood Pressure Blood Pressure 135/72 H 137/56 H 125/55 L [Left Radial artery] O2 Saturation 100 99 100 05/24/18 05/24/18 05/24/18 07:00 08:00 09:00 Temperature 36.9 C Heart Rate Heart Rate [ 71 78 75 Monitoring electrodes] Respiratory 15 17 14 Rate Blood Pressure Blood Pressure 117/56 L 133/50 H 140/56 H [Left Radial artery] O2 Saturation 99 100 100 05/24/18 05/24/18 05/24/18 10:00 11:00 12:00 Temperature 36.7 C Heart Rate Heart Rate [ 77 80 75 Monitoring electrodes] Respiratory 17 15 13 Rate Blood Pressure Blood Pressure 144/56 H 154/61 H 146/51 H [Left Radial artery] O2 Saturation 99 99 95 05/24/18 05/24/18 13:00 14:00 Temperature Heart Rate Heart Rate [ 73 69 Monitoring electrodes] Respiratory 17 19 Rate Blood Pressure Blood Pressure 148/48 H 130/44 L [Left Radial artery] O2 Saturation 96 96 Oxygen O2 Source Room air I&O (Last 24 Hrs): Intake and Output Totals x24h 05/22/18 05/23/18 05/24/18 23:59 23:59 23:59 Intake Total 2100 6725.833 Output Total 5500 Balance 2100 1225.833 General: Alert, Other (Appears fatigued) HEENT: Other (Mucosa dry) Neuro: Non Focal Cardiovascular: Regular rate, No murmurs Respiratory: No respiratory distress Abdomen: Soft Extremities: No edema - Results Results: Laboratory Results WBC 12.1 x10^3/uL (4.8-10.8) H 05/24/18 04:02 RBC 3.07 10^6/uL (4.20-5.40) L 05/24/18 04:02 Hgb 9.2 g/dL (12.0-16.0) L 05/24/18 04:02 Hct 27.2 % (37.0-47.0) L 05/24/18 04:02 MCV 88.5 fL (81.0-99.0) 05/24/18 04:02 MCH 30.0 pg (27.0-31.0) 05/24/18 04:02 MCHC 33.9 g/dL (32.0-36.0) 05/24/18 04:02 RDW 13.8 % (12.0-15.0) 05/24/18 04:02 Plt Count 209 10^3/uL (130-450) 05/24/18 04:02 MPV 8.7 fL (7.9-10.8) 05/24/18 04:02 Neut # (Auto) 8.9 10^3/uL (1.5-6.6) H 05/24/18 04:02 Lymph # (Auto) 1.8 10^3/uL (1.5-3.5) 05/24/18 04:02 [place] # (Auto) 1.4 10^3/uL (0.0-1.0) H 05/24/18 04:02 Eos # (Auto) 0.0 10^3/uL (0.0-0.7) 05/24/18 04:02 Baso # (Auto) 0.0 10^3/uL (0.0-0.1) 05/24/18 04:02 Absolute Nucleated RBC 0.00 x10^3/uL 05/24/18 04:02 Nucleated RBC % 0.0 /100WBC 05/24/18 04:02 PT 11.8 secs (9.9-12.6) 05/24/18 04:02 INR 1.0 (0.8-1.2) 05/24/18 04:02 VBG pH 7.389 (7.31-7.41) 05/24/18 06:08 VBG pCO2 42.8 mmHg (41-51) 05/24/18 00:44 VBG pO2 54.0 mmHg (25-47) H 05/24/18 00:44 VBG HCO3 23.9 mmol/L (23-28) 05/24/18 00:44 VBG Total CO2 25.0 mmol/L (24-29) 05/24/18 00:44 VBG O2 Saturation 86.0 % (60-80) H 05/24/18 00:44 VBG Base Excess -2.0 mmol/L (-2 - +2) 05/24/18 00:44 Ionized Calcium 0.93 mmol/L (1.15-1.33) L 05/24/18 06:08 Sodium 138 mmol/L (135-145) 05/24/18 04:02 Potassium 3.7 mmol/L (3.5-5.0) 05/24/18 04:02 Chloride 109 mmol/L (101-111) 05/24/18 04:02 Carbon Dioxide 21 mmol/L (21-32) 05/24/18 04:02 Anion Gap 8.0 (6-13) 05/24/18 04:02 BUN 17 mg/dL (6-20) 05/24/18 04:02 Creatinine 1.0 mg/dL (0.4-1.0) 05/24/18 04:02 Estimated GFR (MDRD) 56 (>89) L 05/24/18 04:02 Glucose 154 mg/dL (70-100) H 05/24/18 06:08 POC Whole Bld Glucose 204 mg/dL (70 - 100) H 05/24/18 11:26 Glycated Hemoglobin 10.6 % (4.6-6.2) H 05/24/18 04:02 Estim Average Glucose 258 (70-100) H 05/24/18 04:02 Lactic Acid 0.8 mmol/L (0.5-2.2) 05/24/18 00:44 Calcium 6.9 mg/dL (8.5-10.3) L 05/24/18 04:02 Phosphorus 3.2 mg/dL (2.5-4.6) 05/24/18 04:02 Magnesium 1.6 mg/dL (1.7-2.8) L 05/24/18 04:02 Total Bilirubin 0.5 mg/dL (0.2-1.0) 05/24/18 04:02 AST 20 IU/L (10-42) 05/24/18 04:02 ALT 22 IU/L (10-60) 05/24/18 04:02 Alkaline Phosphatase 79 IU/L (42-121) 05/24/18 04:02 Troponin I < 0.04 ng/mL (<0.49) 05/24/18 00:44 Total Protein 5.8 g/dL (6.7-8.2) L 05/24/18 04:02 Albumin 2.8 g/dL (3.2-5.5) L 05/24/18 04:02 Globulin 3.0 g/dL (2.1-4.2) 05/24/18 04:02 Albumin/Globulin Ratio 0.9 (1.0-2.2) L 05/24/18 04:02 Lipase 25 U/L (22-51) 05/23/18 17:45 TSH 0.23 uIU/mL (0.34-5.60) L 05/23/18 17:45 Free T4 1.24 ng/dL (0.58-1.64) 05/23/18 18:00 Urine Color YELLOW 05/23/18 19:53 Urine Clarity CLEAR (CLEAR) 05/23/18 19:53 Urine pH 6.0 PH (5.0-7.5) 05/23/18 19:53 Ur Specific [place] 1.015 (1.002-1.030) 05/23/18 19:53 Urine Protein 100 mg/dL (NEGATIVE) H 05/23/18 19:53 Urine Glucose (UA) >=1000 mg/dL (NEGATIVE) H 05/23/18 19:53 Urine Ketones 40 mg/dL (NEGATIVE) H 05/23/18 19:53 Urine Occult Blood SMALL (NEGATIVE) H 05/23/18 19:53 Urine Nitrite NEGATIVE (NEGATIVE) 05/23/18 19:53 Urine Bilirubin NEGATIVE (NEGATIVE) 05/23/18 19:53 Urine Urobilinogen 0.2 (NORMAL) E.U./dL (NORMAL) 05/23/18 19:53 Ur Leukocyte Esterase NEGATIVE (NEGATIVE) 05/23/18 19:53 Urine RBC 0-5 /HPF (0-5) 05/23/18 19:53 Urine WBC 0-3 /HPF (0-5) 05/23/18 19:53 Ur Squamous Epith Cells NONE SEEN (<= Few) 05/23/18 19:53 Urine Bacteria None Seen /HPF (None Seen) 05/23/18 19:53 Ur Microscopic Review INDICATED 05/23/18 19:53 Urine Culture Comments NOT INDICATED 05/23/18 19:53 CSF Color COLORLESS (COLORLESS) 05/23/18 20:47 CSF Clarity CLEAR (CLEAR) 05/23/18 20:47 Xanthrochromic ABSENT (ABSENT) 05/23/18 20:47 CSF WBC 1 /mm^3 (0-5) 05/23/18 20:47 CSF RBC 893 /mm^3 (0-1) H 05/23/18 20:47 CSF Cell Count Tube # CSF TUBE# 3 05/23/18 20:47 CSF Glucose 228 mg/dL (45-70) H 05/23/18 20:47 CSF Total Protein 64 mg/dL (15-60) H 05/23/18 20:47 Salicylates < 6.0 mg/dL 05/23/18 17:45 Urine Opiates Screen NEGATIVE (NEGATIVE) 05/23/18 19:53 Ur Oxycodone Screen NEGATIVE (NEGATIVE) 05/23/18 19:53 Urine Methadone Screen NEGATIVE (NEGATIVE) 05/23/18 19:53 Ur Propoxyphene Screen NEGATIVE (NEGATIVE) 05/23/18 19:53 Acetaminophen < 10 ug/mL (10-30) L 05/23/18 17:45 Ur Barbiturates Screen NEGATIVE (NEGATIVE) 05/23/18 19:53 Ur Tricyclics Screen NEGATIVE (NEGATIVE) 05/23/18 19:53 Ur Phencyclidine Scrn NEGATIVE (NEGATIVE) 05/23/18 19:53 Ur Amphetamine Screen NEGATIVE (NEGATIVE) 05/23/18 19:53 U Methamphetamines Scrn NEGATIVE (NEGATIVE) 05/23/18 19:53 U Benzodiazepines Scrn NEGATIVE (NEGATIVE) 05/23/18 19:53 Urine Cocaine Screen NEGATIVE (NEGATIVE) 05/23/18 19:53 U Cannabinoids Screen NEGATIVE (NEGATIVE) 05/23/18 19:53 Ethyl Alcohol < 5.0 mg/dL 05/23/18 17:45 Serum Ketones SMALL (NEGATIVE) H 05/24/18 14:07 ABX Reporting Has patient been on IV antibiotics over the past 48 hours?: Yes
[2018-05-24] MEDS ORDERED: INSULIN ASPART 300 UNIT/3 ML PEN SUBQ SCH (17:00)
[2018-05-24] MEDS ORDERED: predniSONE 10 MG TABLET PO SCH (20:00)
[2018-05-24] MEDS ORDERED: INSULIN LISPRO 100 UNIT/1 ML 10 ML MDV SUBQ SCH (20:00)
[2018-05-24] MEDS ORDERED: INSULIN REGULAR HUMAN 100 UNIT/1 ML 10 ML MDV SUBQ SCH (20:00)
[2018-05-24] MEDS: predniSONE 10 MG TABLET PO SCH (20:54)
[2018-05-24] MEDS ORDERED: INSULIN GLARGINE 300 UNIT/3 ML PEN SUBQ SCH (21:00)
[2018-05-24] MEDS: ATORVASTATIN 40 MG TABLET PO SCH (21:03)
[2018-05-24] MEDS: INSULIN NPH HUMAN 100 UNIT/1 ML 10 ML MDV SUBQ SCH (22:10)
[2018-05-25] MEDS: CEFEPIME 2 GM in SODIUM CHLORIDE 0.9% MINIBAG 100 ML IV SCH ×3 (00:04→16:08)
[2018-05-25] MEDS: SODIUM CHLORIDE FLUSH 0.9% 10 ML SYRINGE IVP SCH ×3 (00:12→17:32)
[2018-05-25] MEDS: ACETAMINOPHEN 325 MG TABLET PO PRN ×3 (04:20→16:08)
[2018-05-25 06:12] LABS: KETONES, SERUM (ACETEST) NEGATIVE (NEGATIVE)
[2018-05-25 06:13] LABS: BASOPHILS % (AUTO) 0.2 %; EOSINOPHILS % (AUTO) 0.1 %; HGB - HEMOGLOBIN 9.7 g/dL (12.0-16.0); LYMPHOCYTES # (AUTO) 1.2 10^3/uL (1.5-3.5); LYMPHOCYTES % (AUTO) 12.9 %; MEAN CORPUSCULAR HEMOGLOBIN 30.9 pg (27.0-31.0); MEAN CORPUSCULAR HGB CONC 34.5 g/dL (32.0-36.0); MEAN CORPUSCULAR VOLUME 89.5 fL (81.0-99.0); MEAN PLATELET VOLUME 9.5 fL (7.9-10.8); MONOCYTES # (AUTO) 0.3 10^3/uL (0.0-1.0); MONOCYTES % (AUTO) 2.7 %; NEUTROPHILS # (AUTO) 7.7 10^3/uL (1.5-6.6); NEUTROPHILS % (AUTO) 84.1 %; PLT - PLATELET COUNT 200 10^3/uL (130-450); RED BLOOD COUNT 3.15 10^6/uL (4.20-5.40); RED CELL DISTRIBUTION WIDTH 14.2 % (12.0-15.0); WHITE BLOOD COUNT 9.2 x10^3/uL (4.8-10.8)
[2018-05-25 06:18] LABS: ALBUMIN 2.6 g/dL (3.2-5.5); ALBUMIN/GLOBULIN RATIO 0.9 (1.0-2.2); ALKALINE PHOSPHATASE 72 IU/L (42-121); ALT ALANINE AMINOTRANSFERASE 20 IU/L (10-60); AST ASPARTATE AMINOTRANSFERASE 19 IU/L (10-42); BILIRUBIN,TOTAL 0.6 mg/dL (0.2-1.0); BUN - BLOOD UREA NITROGEN 10 mg/dL (6-20); CALCIUM 7.6 mg/dL (8.5-10.3); CARBON DIOXIDE - CO2 22 mmol/L (21-32); CHLORIDE 108 mmol/L (101-111); CREATININE 0.8 mg/dL (0.4-1.0); GFR - MDRD 73 (>89); GLUCOSE 281 mg/dL (70-100); MAGNESIUM 1.7 mg/dL (1.7-2.8); SODIUM 137 mmol/L (135-145); TOTAL PROTEIN 5.6 g/dL (6.7-8.2)
[2018-05-25 06:35] LABS: HB2 TOTAL 9.8 g/dL; HEMOGLOBIN A1C 0.89 g/dL; HEMOGLOBIN A1C % 10.5 % (4.6-6.2)
[2018-05-25] MEDS: metroNIDAZOLE 500 MG/100 ML 500 MG/100 ML BAG IV SCH ×3 (06:54→23:08)
[2018-05-25] MEDS: LEVOTHYROXINE 125 MCG TABLET PO SCH (06:56)
[2018-05-25] MEDS: PANTOPRAZOLE 40 MG VIAL IVP SCH (06:56)
[2018-05-25] MEDS ORDERED: INSULIN NPH HUMAN 100 UNIT/1 ML 10 ML MDV SUBQ SCH ×3 (07:30→16:30)
[2018-05-25] MEDS ORDERED: INSU100V10 SUBQ SCH (08:00)
[2018-05-25] MEDS ORDERED: INSULIN LISPRO 100 UNIT/1 ML 10 ML MDV SUBQ SCH (08:00)
[2018-05-25] MEDS: MAGNESIUM OXIDE 400 MG TABLET PO SCH ×2 (08:25→12:35)
[2018-05-25] MEDS: INSULIN NPH HUMAN 100 UNIT/1 ML 10 ML MDV SUBQ SCH ×2 (08:26→17:27)
[2018-05-25] MEDS: INSU100V10 SUBQ SCH ×3 (08:26→17:26)
[2018-05-25] MEDS: CLOPIDOGREL 75 MG TABLET PO SCH (09:24)
[2018-05-25] MEDS: ENOXAPARIN 40 MG/0.4 ML SYRINGE SUBQ SCH (09:25)
[2018-05-25] MEDS: POLYETHYLENE GLYCOL 3350 17 GM PACKET PO SCH (09:25)
[2018-05-25] MEDS: VANCOMYCIN INJ 1 GM in SODIUM CHLORIDE 0.9% 250 ML IV SCH ×2 (09:27→21:31)
[2018-05-25] MEDS: DEXTROSE 5%-0.9% NACL 1,000 ML IV SCH (11:35)
--- NOTE | 2018-05-25 14:28 | PROVIDER PROGRESS NOTE ---
Assessment/Plan - Problem List (1) Metabolic encephalopathy Assessment/Plan: Pt still had some confusion with answers to detailed questions about her life. She is walking and feeding herself Possible DCh tomorrow.. (2) Pyelonephritis, acute Assessment/Plan: Continue iv antibiotics, til transitionto oral antibiotics at discharge for a 7- 10 day total antibiotic course. (3) Diabetes Assessment/Plan: Pt oncarb controlled diet, ss Insulin (4) Severe sepsis Assessment/Plan: Resolved (5) DARSHAN (acute kidney injury) Assessment/Plan: Resolved with iv hydration (6) DKA (diabetic ketoacidoses) Qualifiers: Diabetes mellitus type: type 2 Assessment/Plan: Resolved, off Insulin drip. - Current Meds Current Meds: Current Medications Generic Name Dose Route Start Last Admin Trade Name Freq PRN Reason Stop Dose Admin Acetaminophen 650 mg 05/23/18 21:50 05/25/18 12:35 Tylenol PO 650 mg Q4HR PRN Administration Pain 1 to 4 Atorvastatin Calcium 40 mg 05/24/18 21:00 05/24/18 21:03 Lipitor PO 40 mg QPM REYNA Administration Clopidogrel Bisulfate 75 mg 05/25/18 09:00 05/25/18 09:24 Plavix PO 75 mg DAILY REYNA Administration Enoxaparin Sodium 40 mg 05/24/18 09:00 05/25/18 09:25 Lovenox SUBQ 40 mg DAILY REYNA Administration Metronidazole 500 mg in 100 mls @ 100 mls/hr 05/23/18 23:00 05/25/18 07:54 Flagyl 500 Mg/100 Ml IV Infused Q8H REYNA Infusion Cefepime HCl 2 gm/ Sodium 100 mls @ 200 mls/hr 05/24/18 08:00 05/25/18 08:55 Chloride IV Infused Q8H REYNA Infusion Dextrose/Sodium Chloride 1,000 mls @ 75 mls/hr 05/24/18 04:00 05/25/18 11:35 D5ns IV 05/25/18 19:59 75 mls/hr .[id number] REYNA Administration Vancomycin HCl 1 gm/ Sodium 250 mls @ 167 mls/hr 05/24/18 09:00 05/25/18 10:57 Chloride IV Infused Q12H REYNA Infusion Insulin Human NPH 15 unit 05/25/18 07:30 05/25/18 08:26 Novolin N SUBQ 15 unit 0730 REYNA Administration Insulin Human NPH 10 unit 05/24/18 21:33 05/24/18 22:10 Novolin N SUBQ 10 unit 1630 REYNA Administration Insulin Human Regular 3 - 11 unit 05/25/18 08:00 05/25/18 11:55 Novolin R SUBQ 11 unit 0800,1200,1700 REYNA Administration Protocol Levothyroxine Sodium 125 mcg 05/25/18 07:00 05/25/18 06:56 Synthroid PO 125 mcg QDAC REYNA Administration Pantoprazole Sodium 40 mg 05/24/18 07:00 05/25/18 06:56 Protonix IVP 40 mg QDAC REYNA Administration Polyethylene Glycol 17 gm 05/25/18 09:00 05/25/18 09:25 Miralax PO 17 gm DAILY REYNA Administration Prednisone 10 mg 05/24/18 20:00 05/24/18 20:54 Deltasone PO 05/26/18 20:01 10 mg Q24H REYNA Administration Sodium Chloride 10 ml 05/24/18 01:00 05/25/18 09:26 Normal Saline Flush 0.9% IVP Not Given 0100,0900,1700 REYNA Sodium Chloride 10 ml 05/23/18 21:50 05/24/18 06:46 Normal Saline Flush 0.9% IVP 10 ml PRN PRN Administration NEEDED PER PROVIDER ORDERS - Lab Result Fish Bone Diagrams: 05/25/18 05:05 05/25/18 05:05 - Additional Planning My Orders: My Active Orders 05/24/18 16:40 Nebulizer [Nebulizer/MDI Tx.] [RC] .Q4 PRN 05/24/18 20:00 predniSONE [Deltasone] 10 mg PO Q24H 05/24/18 21:00 Atorvastatin [Lipitor] 40 mg PO QPM 05/25/18 Evaluate and Treat PT [PT] Routine 05/25/18 05:05 FOLATE [IAI] Routine IRON TIBC PANEL [CHEM] Routine VITAMIN B12 [IAI] Routine 05/25/18 07:00 Levothyroxine [Synthroid] 125 mcg PO QDAC 05/25/18 08:00 Insulin Regular Human [NovoLIN R] 3 - 11 unit SUBQ 0800,1200,1700 05/25/18 09:00 Clopidogrel [Plavix] 75 mg PO DAILY Polyethylene Glycol 3350 [Miralax] 17 gm PO DAILY 05/25/18 Lunch Carb-controlled Diet [DIET] 05/27/18 20:00 predniSONE [Deltasone] 5 mg PO Q24H Subjective - Subjective Patient Reports: Feeling Better Nursing Reports: Other (Pt was confused with some answers during PT today) Objective Vital Signs: Vital Signs - 24 hr 05/24/18 05/24/18 05/24/18 15:26 16:00 17:00 Temperature 36.4 C L Heart Rate Heart Rate [ 69 65 68 Monitoring electrodes] Respiratory 20 16 15 Rate Blood Pressure 133/54 H 149/67 H 165/72 H [Left Radial artery] Blood Pressure [Right Radial artery] O2 Saturation 93 97 97 05/24/18 05/24/18 05/24/18 18:00 19:00 20:00 Temperature Heart Rate Heart Rate [ 71 76 76 Monitoring electrodes] Respiratory 16 21 16 Rate Blood Pressure 156/62 H 153/50 H 138/54 H [Left Radial artery] Blood Pressure [Right Radial artery] O2 Saturation 96 94 96 05/24/18 05/24/18 05/24/18 21:00 22:16 23:00 Temperature Heart Rate Heart Rate [ 64 72 58 L Monitoring electrodes] Respiratory 16 21 15 Rate Blood Pressure 143/59 H [Left Radial artery] Blood Pressure 113/86 H 108/41 L [Right Radial artery] O2 Saturation 96 95 91 L 05/25/18 05/25/18 05/25/18 00:02 01:00 02:00 Temperature 37.1 C Heart Rate Heart Rate [ 58 L 64 55 L Monitoring electrodes] Respiratory 14 14 15 Rate Blood Pressure [Left Radial artery] Blood Pressure 116/50 L 117/51 L 106/50 L [Right Radial artery] O2 Saturation 100 94 97 05/25/18 05/25/18 05/25/18 03:00 04:00 04:16 Temperature 37.1 C Heart Rate Heart Rate [ 59 L 59 L 63 Monitoring electrodes] Respiratory 8 L 15 15 Rate Blood Pressure [Left Radial artery] Blood Pressure 106/49 L 117/51 L [Right Radial artery] O2 Saturation 93 99 94 05/25/18 05/25/18 05/25/18 05:00 06:00 07:00 Temperature Heart Rate Heart Rate [ 80 65 63 Monitoring electrodes] Respiratory 16 15 14 Rate Blood Pressure [Left Radial artery] Blood Pressure 155/66 H 112/51 L 113/52 L [Right Radial artery] O2 Saturation 95 92 96 05/25/18 05/25/18 05/25/18 08:00 09:00 12:06 Temperature 36.7 C Heart Rate Heart Rate [ 80 66 Monitoring electrodes] Respiratory 23 14 Rate Blood Pressure [Left Radial artery] Blood Pressure 143/116 H 161/90 H [Right Radial artery] O2 Saturation 97 100 05/25/18 05/25/18 05/25/18 12:45 12:46 13:30 Temperature 36.7 C Heart Rate 78 78 Heart Rate [ 75 Monitoring electrodes] Respiratory 14 14 14 Rate Blood Pressure [Left Radial artery] Blood Pressure [Right Radial artery] O2 Saturation 98 98 Oxygen O2 Source Room air I&O (Last 24 Hrs): Intake and Output Totals x24h 05/23/18 05/24/18 05/25/18 23:59 23:59 23:59 Intake Total 2100 8543.333 2650 Output Total 8115 2890 Balance 2100 428.333 -240 General: Alert HEENT: Mucous membr. moist/pink Neck: Supple Neuro: Non Focal Cardiovascular: Other (Distant heart sounds) Respiratory: No respiratory distress, Breath sounds nml Abdomen: Soft Extremities: No edema - Results Results: Laboratory Results WBC 9.2 x10^3/uL (4.8-10.8) 05/25/18 05:05 RBC 3.15 10^6/uL (4.20-5.40) L 05/25/18 05:05 Hgb 9.7 g/dL (12.0-16.0) L 05/25/18 05:05 Hct 28.2 % (37.0-47.0) L 05/25/18 05:05 MCV 89.5 fL (81.0-99.0) 05/25/18 05:05 MCH 30.9 pg (27.0-31.0) 05/25/18 05:05 MCHC 34.5 g/dL (32.0-36.0) 05/25/18 05:05 RDW 14.2 % (12.0-15.0) 05/25/18 05:05 Plt Count 200 10^3/uL (130-450) 05/25/18 05:05 MPV 9.5 fL (7.9-10.8) 05/25/18 05:05 Neut # (Auto) 7.7 10^3/uL (1.5-6.6) H 05/25/18 05:05 Lymph # (Auto) 1.2 10^3/uL (1.5-3.5) L 05/25/18 05:05 [place] # (Auto) 0.3 10^3/uL (0.0-1.0) 05/25/18 05:05 Eos # (Auto) 0.0 10^3/uL (0.0-0.7) 05/25/18 05:05 Baso # (Auto) 0.0 10^3/uL (0.0-0.1) 05/25/18 05:05 Absolute Nucleated RBC 0.00 x10^3/uL 05/25/18 05:05 Nucleated RBC % 0.0 /100WBC 05/25/18 05:05 PT 11.8 secs (9.9-12.6) 05/24/18 04:02 INR 1.0 (0.8-1.2) 05/24/18 04:02 VBG pH 7.389 (7.31-7.41) 05/24/18 06:08 VBG pCO2 42.8 mmHg (41-51) 05/24/18 00:44 VBG pO2 54.0 mmHg (25-47) H 05/24/18 00:44 VBG HCO3 23.9 mmol/L (23-28) 05/24/18 00:44 VBG Total CO2 25.0 mmol/L (24-29) 05/24/18 00:44 VBG O2 Saturation 86.0 % (60-80) H 05/24/18 00:44 VBG Base Excess -2.0 mmol/L (-2 - +2) 05/24/18 00:44 Ionized Calcium 0.93 mmol/L (1.15-1.33) L 05/24/18 06:08 Sodium 137 mmol/L (135-145) 05/25/18 05:05 Potassium 4.0 mmol/L (3.5-5.0) 05/25/18 05:05 Chloride 108 mmol/L (101-111) 05/25/18 05:05 Carbon Dioxide 22 mmol/L (21-32) 05/25/18 05:05 Anion Gap 7.0 (6-13) 05/25/18 05:05 BUN 10 mg/dL (6-20) 05/25/18 05:05 Creatinine 0.8 mg/dL (0.4-1.0) 05/25/18 05:05 Estimated GFR (MDRD) 73 (>89) L 05/25/18 05:05 Glucose 281 mg/dL (70-100) H 05/25/18 05:05 POC Whole Bld Glucose 331 mg/dL (70 - 100) H 05/25/18 11:41 Glycated Hemoglobin 10.5 % (4.6-6.2) H 05/25/18 05:05 Estim Average Glucose 255 (70-100) H 05/25/18 05:05 Lactic Acid 0.8 mmol/L (0.5-2.2) 05/24/18 00:44 Calcium 7.6 mg/dL (8.5-10.3) L 05/25/18 05:05 Phosphorus 3.2 mg/dL (2.5-4.6) 05/24/18 04:02 Magnesium 1.7 mg/dL (1.7-2.8) 05/25/18 05:05 Total Bilirubin 0.6 mg/dL (0.2-1.0) 05/25/18 05:05 AST 19 IU/L (10-42) 05/25/18 05:05 ALT 20 IU/L (10-60) 05/25/18 05:05 Alkaline Phosphatase 72 IU/L (42-121) 05/25/18 05:05 Troponin I < 0.04 ng/mL (<0.49) 05/24/18 22:55 Total Protein 5.6 g/dL (6.7-8.2) L 05/25/18 05:05 Albumin 2.6 g/dL (3.2-5.5) L 05/25/18 05:05 Globulin 3.0 g/dL (2.1-4.2) 05/25/18 05:05 Albumin/Globulin Ratio 0.9 (1.0-2.2) L 05/25/18 05:05 Lipase 25 U/L (22-51) 05/23/18 17:45 Vitamin B12 547 pg/mL (180-914) 05/25/18 05:05 TSH 0.23 uIU/mL (0.34-5.60) L 05/23/18 17:45 Free T4 1.24 ng/dL (0.58-1.64) 05/23/18 18:00 Urine Color YELLOW 05/23/18 19:53 Urine Clarity CLEAR (CLEAR) 05/23/18 19:53 Urine pH 6.0 PH (5.0-7.5) 05/23/18 19:53 Ur Specific [place] 1.015 (1.002-1.030) 05/23/18 19:53 Urine Protein 100 mg/dL (NEGATIVE) H 05/23/18 19:53 Urine Glucose (UA) >=1000 mg/dL (NEGATIVE) H 05/23/18 19:53 Urine Ketones 40 mg/dL (NEGATIVE) H 05/23/18 19:53 Urine Occult Blood SMALL (NEGATIVE) H 05/23/18 19:53 Urine Nitrite NEGATIVE (NEGATIVE) 05/23/18 19:53 Urine Bilirubin NEGATIVE (NEGATIVE) 05/23/18 19:53 Urine Urobilinogen 0.2 (NORMAL) E.U./dL (NORMAL) 05/23/18 19:53 Ur Leukocyte Esterase NEGATIVE (NEGATIVE) 05/23/18 19:53 Urine RBC 0-5 /HPF (0-5) 05/23/18 19:53 Urine WBC 0-3 /HPF (0-5) 05/23/18 19:53 Ur Squamous Epith Cells NONE SEEN (<= Few) 05/23/18 19:53 Urine Bacteria None Seen /HPF (None Seen) 05/23/18 19:53 Ur Microscopic Review INDICATED 05/23/18 19:53 Urine Culture Comments NOT INDICATED 05/23/18 19:53 CSF Color COLORLESS (COLORLESS) 05/23/18 20:47 CSF Clarity CLEAR (CLEAR) 05/23/18 20:47 Xanthrochromic ABSENT (ABSENT) 05/23/18 20:47 CSF WBC 1 /mm^3 (0-5) 05/23/18 20:47 CSF RBC 893 /mm^3 (0-1) H 05/23/18 20:47 CSF Cell Count Tube # CSF TUBE# 3 05/23/18 20:47 CSF Glucose 228 mg/dL (45-70) H 05/23/18 20:47 CSF Total Protein 64 mg/dL (15-60) H 05/23/18 20:47 Salicylates < 6.0 mg/dL 05/23/18 17:45 Urine Opiates Screen NEGATIVE (NEGATIVE) 05/23/18 19:53 Ur Oxycodone Screen NEGATIVE (NEGATIVE) 05/23/18 19:53 Urine Methadone Screen NEGATIVE (NEGATIVE) 05/23/18 19:53 Ur Propoxyphene Screen NEGATIVE (NEGATIVE) 05/23/18 19:53 Acetaminophen < 10 ug/mL (10-30) L 05/23/18 17:45 Ur Barbiturates Screen NEGATIVE (NEGATIVE) 05/23/18 19:53 Ur Tricyclics Screen NEGATIVE (NEGATIVE) 05/23/18 19:53 Ur Phencyclidine Scrn NEGATIVE (NEGATIVE) 05/23/18 19:53 Ur Amphetamine Screen NEGATIVE (NEGATIVE) 05/23/18 19:53 U Methamphetamines Scrn NEGATIVE (NEGATIVE) 05/23/18 19:53 U Benzodiazepines Scrn NEGATIVE (NEGATIVE) 05/23/18 19:53 Urine Cocaine Screen NEGATIVE (NEGATIVE) 05/23/18 19:53 U Cannabinoids Screen NEGATIVE (NEGATIVE) 05/23/18 19:53 Ethyl Alcohol < 5.0 mg/dL 05/23/18 17:45 Serum Ketones NEGATIVE (NEGATIVE) 05/25/18 05:05 ABX Reporting Has patient been on IV antibiotics over the past 48 hours?: Yes
[2018-05-25 15:24] LABS: % IRON SATURATION 17 % (20-50); IRON 37 ug/dL (28-170); TOTAL IRON BINDING CAPACITY 213 ug/dL (250-450); TRANSFERRIN 152 mg/dL (192-382)
[2018-05-25 20:49] LABS: VANCOMYCIN,TROUGH 19.9 ug/mL (10.0-20.0)
[2018-05-25] MEDS: ATORVASTATIN 40 MG TABLET PO SCH (21:31)
[2018-05-25] MEDS: predniSONE 10 MG TABLET PO SCH (21:31)
[2018-05-25] MEDS ORDERED: INSULIN ASPART 300 UNIT/3 ML PEN SUBQ SCH (21:34)
[2018-05-26] MEDS: CEFEPIME 2 GM in SODIUM CHLORIDE 0.9% MINIBAG 100 ML IV SCH ×2 (00:32→08:33)
[2018-05-26] MEDS: ACETAMINOPHEN 325 MG TABLET PO PRN (00:33)
[2018-05-26] MEDS: SODIUM CHLORIDE FLUSH 0.9% 10 ML SYRINGE IVP SCH ×2 (00:41→08:34)
[2018-05-26 05:54] LABS: BASOPHILS # (AUTO) 0.1 10^3/uL (0.0-0.1); BASOPHILS % (AUTO) 1.5 %; EOSINOPHILS % (AUTO) 0.1 %; HGB - HEMOGLOBIN 10.6 g/dL (12.0-16.0); LYMPHOCYTES # (AUTO) 1.1 10^3/uL (1.5-3.5); LYMPHOCYTES % (AUTO) 11.7 %; MEAN CORPUSCULAR HEMOGLOBIN 30.3 pg (27.0-31.0); MEAN CORPUSCULAR HGB CONC 34.2 g/dL (32.0-36.0); MEAN CORPUSCULAR VOLUME 88.7 fL (81.0-99.0); MONOCYTES # (AUTO) 0.2 10^3/uL (0.0-1.0); MONOCYTES % (AUTO) 2.2 %; NEUTROPHILS # (AUTO) 7.6 10^3/uL (1.5-6.6); NEUTROPHILS % (AUTO) 84.5 %; PLT - PLATELET COUNT 201 10^3/uL (130-450); RED BLOOD COUNT 3.51 10^6/uL (4.20-5.40); RED CELL DISTRIBUTION WIDTH 14.3 % (12.0-15.0)
[2018-05-26 06:09] LABS: ALBUMIN 2.8 g/dL (3.2-5.5); ALBUMIN/GLOBULIN RATIO 0.8 (1.0-2.2); BILIRUBIN,TOTAL 0.5 mg/dL (0.2-1.0); CALCIUM 8.4 mg/dL (8.5-10.3); CREATININE 0.8 mg/dL (0.4-1.0); MAGNESIUM 1.6 mg/dL (1.7-2.8); TOTAL PROTEIN 6.1 g/dL (6.7-8.2)
[2018-05-26] MEDS: LEVOTHYROXINE 125 MCG TABLET PO SCH (07:12)
[2018-05-26] MEDS: PANTOPRAZOLE 40 MG VIAL IVP SCH (07:12)
[2018-05-26] MEDS: SODIUM CHLORIDE FLUSH 0.9% 10 ML SYRINGE IVP PRN (07:12)
[2018-05-26] MEDS: metroNIDAZOLE 500 MG/100 ML 500 MG/100 ML BAG IV SCH (07:12)
[2018-05-26] MEDS: INSULIN NPH HUMAN 100 UNIT/1 ML 10 ML MDV SUBQ SCH (08:29)
[2018-05-26] MEDS: INSU100V10 SUBQ SCH ×2 (08:30→11:28)
[2018-05-26] MEDS: POLYETHYLENE GLYCOL 3350 17 GM PACKET PO SCH (08:33)
[2018-05-26] MEDS: CLOPIDOGREL 75 MG TABLET PO SCH (08:33)
[2018-05-26] MEDS: ENOXAPARIN 40 MG/0.4 ML SYRINGE SUBQ SCH (08:33)
[2018-05-26] MEDS: VANCOMYCIN INJ 1 GM in SODIUM CHLORIDE 0.9% 250 ML IV SCH (09:39)
[2018-05-26] MEDS ORDERED: INSULIN REGULAR HUMAN 100 UNIT/1 ML 10 ML MDV SUBQ SCH (11:15)
--- NOTE | 2018-05-26 13:50 | Discharge Plan ---
Discharge Plan Disposition: Home, Self Care Condition: Stable Prescriptions: Ciprofloxacin HCl [Cipro] 500 mg PO BID 5 Days #10 tablet Diet: Diabetic Activity Restrictions: Activity as Tolerated Shower Restrictions: No Driving Restrictions: Yes (Since you are confused, do not drive until cleared by your doctor) Instruction Topics: Pyelonephritis Dc Additional Instructions or Follow Up instructions: Resume all your pre-hospital medications. Take the antibiotic (Cipro) until all the tablets are done. See you PCP in 7-10 days in follow-up. Return to the ER if you have new or worsening symptoms. No Smoking: If you smoke, Please STOP! Call for help.
[2018-05-26 14:35] VITALS: BP 121/62
[2018-05-27] MEDS ORDERED: predniSONE 10 MG TABLET PO SCH (20:00)
--- NOTE | 2018-06-01 10:31 | DISCHARGE SUMMARY ---
Physician: Keila Haddad MD DATE OF ADMISSION: 05/23/2018 DATE OF DISCHARGE: 05/26/2018 PCP: Unknown. HISTORY OF PRESENT ILLNESS: This is a 63-year-old, white female with history of recent pneumonia, morbid obesity, insulin-dependent diabetes, asthma, hypothyroidism. The patient presented to the emergency room, brought in by her aunt. 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 The aunt noticed that the patient was getting more confused and lethargic and brought her in. In the emergency room, the patient was found to have a fever of 39.2, tachycardia with a heart rate of 111, elevated lactic acid of 2.3, and she was obtunded. The emergency room workup showed that she was in DKA. A source of an infection was sought, and she had an unremarkable chest x-ray and urinalysis and even underwent a lumbar puncture in the ER. The CT imaging of the abdomen, however, showed pyelonephritis. She was admitted to the ICU for severe sepsis from pyelonephritis and DKA. HOSPITAL COURSE AND DISCHARGE DIAGNOSES 1. Severe sepsis. The patient with septic by virtue of altered mental status, fever, minimally elevated white count and elevated lactic acid level and tachycardia. She had urine and blood cultures drawn. She was placed on empiric IV cefepime, IV vancomycin, and IV Flagyl. The cultures were all negative at the time of discharge. She was kept on her recently ordered po steroids. The patient's mentation improved slowly over the next day and a half. She was also treated for her DKA, which helped the altered mental status. 2. Pyelonephritis. The initial urinalysis showed high protein and glucose, as well as ketones and blood, but no bacteria were seen. Imaging studies showed [id number]-right perinephric stranding and mild heterogeneity of enhancement of the left renal cortex, suggestive of pyelonephritis. The patient defervesced and was discharged home to complete a course of p.o. antibiotics for pyelonephritis. 3. Diabetic ketoacidosis (DKA). The patient's initial blood glucose was 529, serum ketones moderate, anion gap 15, pH was 7.48, then 7.35. She was placed on an insulin drip, saline IV hydration, eventually transitioned to subcutaneous insulin, when she was more awake and able to eat. Her A1c level was 10.6. 4. Diabetes mellitus, type 2. The patient was managed with a DKA protocol as above. At discharge, she was advised to resume her prior diabetic management. 5. Metabolic encephalopathy. The patient had head a CT that showed generalized age-related cortical atrophy, but no acute intracranial abnormality. She did have the lumbar puncture done in the emergency room, which showed high red blood cells, high glucose of 228, and high protein of 64. The culture of CSF fluid was negative. Her altered mental status improved with correction of her DKA and treatment of her severe sepsis. 6. Asthma. The patient had no exacerbations. She was on her inhalers p.r.n. and kept on her recently ordered Prednisone. 7. Anemia. Her initial hemoglobin was 12.4; however, with hydration, it dropped to 9.2 and on the day of discharge was 10.6. Her MCV and RDW are normal, this anemia may a mixed type or hemodilutional. Further workup is advised as an outpatient. ALLERGIES 1. BEEF INSULIN. 2. PORK INSULIN. 3. SULFA ANTIBIOTICS. MEDICATIONS AT THE TIME OF DISCHARGE 1. Augmentin 1 tablet b.i.d. for 10 more days (this was from the recent pneumonia physician order). 2. Lipitor 40 mg every evening. 3. Plavix 75 mg daily. 4. Her own human insulin doses as before admission of 15 units subcutaneous in the morning and 10 units subcutaneous at 4:30 p.m. with a sliding scale insulin as well. 5. Synthroid 125 mcg daily. 6. Lisinopril 2.5 mg daily. 7. Prednisone tapering schedule of 10 mg for 3 days, then 5 mg for 3 days (this was from the recent pneumonia physician order). 8. Cipro 500 mg b.i.d. for an additional 5 days. LABORATORIES AND IMAGING: Reviewed and summarized above. CONDITION AT DISCHARGE: Stable. PHYSICAL EXAMINATION VITAL SIGNS: Blood pressure 121/62, pulse of 74, in sinus rhythm, afebrile, room air saturation 98%. HEENT: Unremarkable. NECK: Without JVD or bruits, but is obese. CHEST: Clear. HEART: Sounds normal. ABDOMEN: Obese. Nontender. Normal bowel sounds. EXTREMITIES: Without edema. NEUROLOGIC: Intact. FOLLOWUP: With her PCP in 5-7 days. CODE STATUS: FULL CODE. Time required to complete this entire dictation, discharge, prescription orders, reviewed plan with the patient: 30 minutes. TD: 06/01/2018 10:08 BESSIE
== END 2018-05-26 15:24 | disposition home or self-care (01) | DRG 871 ==
LOC: ED 16:03 → ICU 21:50 → MS3 05-25 14:45
PROVIDERS: ADMIT Internal Medicine; ATTEND Internal Medicine
DX: R41.82 Altered mental status, unspecified (principal); R50.9 Fever, unspecified; E11.65 Type 2 diabetes mellitus with hyperglycemia; A41.9 Sepsis, unspecified organism; E11.10 Type 2 diabetes mellitus with ketoacidosis without coma; G93.41 Metabolic encephalopathy; N10 Acute pyelonephritis; E87.1 Hypo-osmolality and hyponatremia; N17.9 Acute kidney failure, unspecified; R65.20 Severe sepsis without septic shock; J45.20 Mild intermittent asthma, uncomplicated; E03.9 Hypothyroidism, unspecified; D64.9 Anemia, unspecified; E78.5 Hyperlipidemia, unspecified; I11.9 Hypertensive heart disease without heart failure; E86.1 Hypovolemia; E86.0 Dehydration; Z79.4 Long term (current) use of insulin; Z87.01 Personal history of pneumonia (recurrent); Z86.39 Personal history of other endocrine, nutritional and metabolic disease; Z79.899 Other long term (current) drug therapy; Z88.8 Allergy status to other drugs, medicaments and biological substances
CPT/HCPCS: 36415; 62270; 70450; 71045; 74177; 80048; 80053; 80202; 80306; 80307; 80320; 80329; 81001; 81003; 82009; 82330; 82607; 82746; 82803; 82945; 82947; 83036; 83540; 83605; 83690; 83735; 84100; 84157; 84439; 84443; 84466; 84484; 85025; 85610; 87040; 87070; 87086; 87150; 87205; 89051; 93005; 93306; 96361; 96374; 96375; 99284; 99285

== ENCOUNTER 2019-06-28 02:21 | Outpatient (CLI) | payer MEDICARE | END 2019-06-28 02:22 | disposition critical access hospital (66) | LOC: EMS 02:21 | PROVIDERS: ATTEND Surgery | DX: R11.2 Nausea with vomiting, unspecified (principal); R19.7 Diarrhea, unspecified | CPT/HCPCS: A0425; A0427 ==

== ENCOUNTER 2019-06-28 02:48 | Emergency (ER) | payer MEDICARE ==
--- NOTE | 2019-06-28 02:57 | ED Physician Documentation ---
History of Present Illness - Stated complaint Stated Complaint: N/V/D - Additonal information Additional information: This is a 64-year-old female with history of hypertension, hyperlipidemia, diabetes, asthma, hypothyroidism, past , who presents with vomiting and diarrhea. Patient states that she did not eat anything out of the ordinary, but several hours ago she went to the bathroom and had a loose stool, this is followed by multiple episodes of nonbloody nonbilious emesis. She denies any known sick contacts. She lives in [place] and is here visiting. No chest pain or shortness of breath. No dysuria. EMS was called and they gave her 4 mg of Zofran in route, currently she does not have any nausea. She does have some mild abdominal discomfort which is mostly in her bilateral upper quadrants. She has a continuous glucose monitor, and it sounds like her glucose has been in the 200s recently Review of Systems Constitutional: denies: Fever Nose: denies: Rhinorrhea / runny nose Cardiac: denies: Chest pain / pressure Respiratory: denies: Dyspnea GI: reports: Vomiting, Reviewed and negative : reports: Reviewed and negative. denies: Dysuria Skin: denies: Rash PD PAST MEDICAL HISTORY - Past Medical History Cardiovascular: Hypertension, High cholesterol, Other Respiratory: Asthma Neuro: None Endocrine/Autoimmune: Type 2 diabetes, HyPOthyroidism GI: None : None HEENT: None Psych: None Musculoskeletal: None Derm: None - Past Surgical History /UPPER LINING CEMENTER: section - Present Medications Home Medications: Ambulatory Orders Medication Instructions Recorded Confirmed Atorvastatin Calcium 40 mg PO QPM 05/23/18 05/24/18 Levothyroxine [Synthroid] 125 mcg PO QDAC 05/23/18 05/24/18 Lisinopril 2.5 mg PO DAILY 05/23/18 05/24/18 Amox/Clav 875/125 [Augmentin 1 tab PO [id number] 05/24/18 05/24/18 875/125] Clopidogrel [Plavix] 75 mg PO DAILY 05/24/18 05/24/18 Insulin Glargine [Lantus Solostar] 20 mg SUBQ QPM 05/24/18 Insulin Lispro [Humalog] 5 - 10 units SUBQ TIDWM 05/24/18 Insulin NPH Human [NovoLIN N] 10 units SUBQ 1630 05/24/18 05/24/18 Insulin NPH Human [NovoLIN N] 15 units SUBQ 0730 05/24/18 05/24/18 Insulin Regular Human [NovoLIN R] 0 - 15 units SUBQ AC 05/24/18 05/24/18 predniSONE [Prednisone] 5 mg PO QDX3D 05/24/18 05/24/18 predniSONE [Prednisone] 10 mg PO QDX3D 05/24/18 05/24/18 Ciprofloxacin HCl [Cipro] 500 mg PO BID 5 Days #10 tablet 05/26/18 Ondansetron Odt [Zofran] 4 mg TL Q6H PRN #10 tablet 06/28/19 - Allergies Allergies/Adverse Reactions: Allergies Allergy/AdvReac Type Severity Reaction Status Date / Time insulin,beef Allergy Rash Verified 05/24/18 18:39 insulin,pork Allergy Rash Verified 05/24/18 18:42 Sulfa (Sulfonamide Allergy Unknown Verified 05/24/18 09:42 Antibiotics) - Social History Smoking Status: Never smoker - POLST Patient has POLST: No POLST Status: Full Code PD ED PE NORMAL - Vitals Vital signs reviewed: Yes - General General: Alert and oriented X 3, No acute distress - HEENT HEENT: PERRL - Neck Neck: Supple, no meningeal sign - Cardiac Cardiac: RRR - Respiratory Respiratory: Clear bilaterally - Abdomen Abdomen: Soft, Other (Mild tenderness, in the left lower quadrant and epigastric region with deep palpation, no guarding) - Derm Derm: Warm and dry - Extremities Extremities: No deformity - Neuro Neuro: Alert and oriented X 3 - Psych Psych: Normal mood, Normal affect Results - Vitals Vitals: Vital Signs - 24 hr 06/28/19 06/28/19 06/28/19 02:52 04:09 04:48 Temperature 36.6 C Heart Rate 80 78 79 Respiratory 15 17 13 Rate Blood Pressure 143/130 H 136/71 H 106/68 O2 Saturation 96 96 94 06/28/19 06/28/19 06/28/19 05:06 06:04 08:05 Temperature Heart Rate 88 90 74 Respiratory 15 17 18 Rate Blood Pressure 126/83 H 122/58 L 101/50 L O2 Saturation 93 95 99 Oxygen O2 Source Room air - EKG (time done) 3:06 Other comments: Other comments (Rate 84, rhythm sinus, no ST segment changes. T wave flattening in the precordial leads. Intervals are within normal limits) - Labs Labs: Laboratory Tests 06/28/19 06/28/19 06/28/19 04:00 04:00 04:00 WBC 12.2 H RBC 3.81 L Hgb 11.4 L Hct 35.9 L MCV 94.2 MCH 29.9 MCHC 31.8 L RDW 13.8 Plt Count 214 MPV 11.0 H Neut # (Auto) 9.8 H Lymph # (Auto) 1.0 L Hubbard # (Auto) 1.2 H Eos # (Auto) 0.1 Baso # (Auto) 0.0 Absolute Nucleated RBC 0.00 Nucleated RBC % 0.0 VBG pH 7.276 L VBG pCO2 54.7 H VBG pO2 37.3 VBG HCO3 24.9 VBG Total CO2 26.6 VBG O2 Saturation 66.6 VBG Base Excess -2.5 L Sodium 142 Potassium 5.1 H Chloride 105 Carbon Dioxide 28 Anion Gap 9.0 BUN 25 H Creatinine 1.0 Estimated GFR (MDRD) 56 L Glucose 277 H Calcium 9.2 Total Bilirubin 0.7 AST 31 ALT 30 Alkaline Phosphatase 107 Total Protein 7.7 Albumin 3.8 Globulin 3.9 Albumin/Globulin Ratio 1.0 Lipase 43 Serum Ketones NEGATIVE 06/28/19 05:50 WBC RBC Hgb Hct MCV MCH MCHC RDW Plt Count MPV Neut # (Auto) Lymph # (Auto) Hubbard # (Auto) Eos # (Auto) Baso # (Auto) Absolute Nucleated RBC Nucleated RBC % VBG pH VBG pCO2 VBG pO2 VBG HCO3 VBG Total CO2 VBG O2 Saturation VBG Base Excess Sodium 139 Potassium 5.2 H Chloride 103 Carbon Dioxide 25 Anion Gap 11.0 BUN 25 H Creatinine 1.0 Estimated GFR (MDRD) 56 L Glucose 339 H Calcium 9.0 Total Bilirubin AST ALT Alkaline Phosphatase Total Protein Albumin Globulin Albumin/Globulin Ratio Lipase Serum Ketones - Rads (name of study) CXR Radiology: Other (No acute cardiopulmonary abnormality.) Procedures - General procedure General procedure: Ultrasound-guided IV was placed using sterile technique in the right AC, 20-gauge. Patient tolerated well, no immediate complications. PD MEDICAL DECISION MAKING - ED course Complexity details: considered differential (Gastroenteritis, pancreatitis, UTI/pyelonephritis, ACS, viral syndrome) ED course: On arrival patient is non-toxic appearing. She received zofran and was given a crystalloid bolus. Her abdomen is benign. Labs are notable for mild hyperkalemia of 5.1, hyperglycemia, no signs of DKA (normal bicarb and anion gap). She has a mild leukocytosis, anemia that is improved from prior values. POC glucose after observation was rising, so she was given regular insulin in accordance with her home sliding scale. After zofran and fluids patient is feeling very well. No further vomiting, no diarrhea while in the ED. She felt well and ready to go home. She had not provided a UA, but she denies dysuria, has no suprapubic tenderness or flank pain, and has no fever. Her symptoms are most consistent with a gastroenteritis. No chest pain, and her EKG shows no convincing signs of ischemia, making ACS highly unlikely. I prescribed patient zofran and discussed hydration and suppo ritve care. I also discussed return precautions including dysuria, fever, vomiting despite the zofran, worsening abdominal pain, or any other concerning symptoms. I also instructed her to have her potassium repeated as this was mildly elevated today. She has normal kidney function and I think this is safe for outpatient follow up. I instructed her to check her glucose frequently. Patient agreed with this plan and was discharged home. Departure - Departure Disposition: 01 Home, Self Care Clinical Impression: Gastroenteritis Condition: Good Follow-Up: Your,PCP [Other] Prescriptions: Ondansetron Odt [Zofran] 4 mg TL Q6H PRN #10 tablet PRN Reason: Nausea / Vomiting Comments: You were seen today for vomiting and diarrhea. This is likely due to a stomach bug. You may take the nausea medication as needed. Please drink plenty of fluids and get adequate rest. If you are developing abdominal pain, persistent vomiting despite the Zofran, blood in your stool, or any other concerning symptoms please return to the emergency department. Check your blood sugar frequently, as your glucose was somewhat elevated today. You should also get your potassium rechecked with your regular doctor in the next week as it was borderline elevated today at 5.1. Discharge Date/Time: 06/28/19 08:39
[2019-06-28] MEDS ORDERED: SODIUM CHLORIDE 0.9% 1,000 ML IV STA (03:07)
[2019-06-28] MEDS ORDERED: METOCLOPRAMIDE 10 MG TABLET PO STA ×2 (03:34→04:26)
[2019-06-28 04:06] LABS: BASOPHILS % (AUTO) 0.3 %; EOSINOPHILS # (AUTO) 0.1 10^3/uL (0.0-0.7); HGB - HEMOGLOBIN 11.4 g/dL (12.0-16.0); LYMPHOCYTES % (AUTO) 7.9 %; MEAN CORPUSCULAR HEMOGLOBIN 29.9 pg (27.0-31.0); MEAN CORPUSCULAR HGB CONC 31.8 g/dL (32.0-36.0); MEAN CORPUSCULAR VOLUME 94.2 fL (81.0-99.0); MONOCYTES # (AUTO) 1.2 10^3/uL (0.0-1.0); MONOCYTES % (AUTO) 10.2 %; NEUTROPHILS # (AUTO) 9.8 10^3/uL (1.5-6.6); NEUTROPHILS % (AUTO) 80.1 %; PLT - PLATELET COUNT 214 10^3/uL (130-450); RED BLOOD COUNT 3.81 10^6/uL (4.20-5.40); RED CELL DISTRIBUTION WIDTH 13.8 % (12.0-15.0); WHITE BLOOD COUNT 12.2 x10^3/uL (4.8-10.8)
[2019-06-28 04:07] LABS: VBG BASE EXCESS -2.5 mmol/L (-2 - +2); VBG PCO2 54.7 mmHg (41-51); VBG PH 7.276 (7.31-7.41); VBG PO2 37.3 mmHg (25-47); VBG TOTAL CO2 26.6 mmol/L (24-29)
[2019-06-28 04:14] LABS: KETONES, SERUM (ACETEST) NEGATIVE (NEGATIVE)
[2019-06-28 04:23] LABS: ALBUMIN 3.8 g/dL (3.2-5.5); ALKALINE PHOSPHATASE 107 IU/L (42-121); ALT ALANINE AMINOTRANSFERASE 30 IU/L (10-60); AST ASPARTATE AMINOTRANSFERASE 31 IU/L (10-42); BILIRUBIN,TOTAL 0.7 mg/dL (0.2-1.0); BUN - BLOOD UREA NITROGEN 25 mg/dL (6-20); CALCIUM 9.2 mg/dL (8.5-10.3); CARBON DIOXIDE - CO2 28 mmol/L (21-32); CHLORIDE 105 mmol/L (101-111); GFR - MDRD 56 (>89); GLUCOSE 277 mg/dL (70-100); LIPASE 43 U/L (22-51); SODIUM 142 mmol/L (135-145); TOTAL PROTEIN 7.7 g/dL (6.7-8.2)
[2019-06-28] MEDS ORDERED: ACETAMINOPHEN 325 MG TABLET PO STA (04:26)
--- NOTE | 2019-06-28 04:36 | XRAY Report ---
Reason: Persistent cough after vomiting Procedure Date: 06/28/2019 Accession Number: [id number] / [id number] Procedure: XR - Chest 2 View X-Ray CPT Code: 86138 FULL RESULT: EXAM: CHEST RADIOGRAPHY EXAM DATE: 06/28/2019 04:21 AM. CLINICAL HISTORY: Persistent cough after vomiting. COMPARISON: CHEST 1 VIEW 05/23/2018 8:43 PM. TECHNIQUE: 2 views. FINDINGS: Lungs/Pleura: Linear atelectasis or scarring in the right midlung and left base. Stable elevation of the right diaphragm. No new infiltrate, effusion, or pneumothorax. Mediastinum: Heart and mediastinal contours are unremarkable. Other: None. IMPRESSION: No evidence of acute cardiopulmonary disease. No significant interval change. RADIA
[2019-06-28] MEDS ORDERED: INSULIN REGULAR HUMAN 100 UNIT/1 ML 10 ML MDV IVP STA ×2 (06:08→06:22)
[2019-06-28 08:06] VITALS: BP 101/50
== END 2019-06-28 08:39 | disposition home or self-care (01) ==
LOC: EDUNIT# → ED 02:48
DX: K52.9 Noninfective gastroenteritis and colitis, unspecified (principal); E87.5 Hyperkalemia; E11.65 Type 2 diabetes mellitus with hyperglycemia; Z79.4 Long term (current) use of insulin; D72.829 Elevated white blood cell count, unspecified; D64.9 Anemia, unspecified; I10 Essential (primary) hypertension; E78.5 Hyperlipidemia, unspecified; E03.9 Hypothyroidism, unspecified; J45.909 Unspecified asthma, uncomplicated; Z79.02 Long term (current) use of antithrombotics/antiplatelets
CPT/HCPCS: 36415; 71046; 80048; 80053; 82009; 82803; 83690; 85025; 93005; 96360; 99284; A9270; J1815